=== PATIENT | female | born 2000 | race Caucasian/White ===

== ENCOUNTER 2021-12-25 17:57 | Outpatient (CLI) | payer BC, OTHER, SELFPAY ==
[2021-12-25 18:22] VITALS: BP 135/85; PULSE 101
[2021-12-25 18:30] VITALS: BP 131/86; PULSE 104
[2021-12-25 18:41] LABS: Basophils Percent Auto 0.1 % (0.2-1.2); Eosinophils Percent Auto 0.3 % (0-4.4); Hematocrit 34.3 % (37.0-47.0); Hemoglobin 11.2 g/dL (12.0-15.0); Immature Granulocyte Absolute 0.02 K/mm3 (0.00-0.031); Immature Granulocyte Percent A 0.3 % (0-0.5); Lymphocytes Absolute Auto 1.26 K/mm3 (0.9-3.2); Lymphocytes Percent Auto 16.5 % (18.3-44.2); Mean Corpuscular HGB Conc 32.7 g/dl (32-36); Mean Corpuscular Hemoglobin 29.7 pg (26-34); Mean Platelet Volume 11.7 fl (7.4-10.4); Monocytes Absolute Auto 0.8 K/mm3 (0.1-0.6); Neutrophils Absolute Auto 5.5 K/mm3 (1.3-6.7); Neutrophils Percent Auto 71.8 % (45.5-73.1); Platelet Count Result 171 k/mm3 (150-375); Red Blood Count 3.77 M/mm3 (4.2-5.4); Red Cell Distribution Width 14.6 % (11.5-14.5); White Blood Count 7.7 K/mm3 (4.5-10.0)
[2021-12-25 18:45] VITALS: BP 126/79; PULSE 101
[2021-12-25 18:54] LABS: Alanine Aminotransferase 15 U/L (6-35); Albumin Level 3.6 g/dL (3.5-5.1); Alkaline Phosphatase 273 U/L (38-126); Anion Gap 7 mmol/L (8-16); Aspartate Amino Transferase 23 U/L (14-36); Bilirubin,Total 0.3 mg/dL (0.2-1.3); Blood Urea Nitrogen 8 mg/dL (7-17); Calcium 8.4 mg/dL (8.4-10.2); Carbon Dioxide 23 mmol/L (22-30); Chloride 102 mmol/L (98-107); Estimated Glomerular Filt Rate > 60; Glucose 115 mg/dL (65-110); Sodium 132 mmol/L (137-145); Uric Acid 5.8 mg/dL (2.5-7.5)
[2021-12-25 18:56] LABS: Appearance Urine Slightly Cloudy (Clear); Bilirubin Urine Negative (Negative); Blood Urine Negative (Negative); Color Urine Yellow (Yellow); Glucose Urine UA Trace mg/dL (Negative); Ketones Urine Negative (Negative); Leukocyte Esterase Ur Negative LEU/UL (NEGATIVE); Nitrate Urine Negative (Negative); Protein Urine Negative (Negative); Urobilinogen Urine 0.2 mg/dL (<2.0); pH Urine 6.5 (5.0-9.0)
[2021-12-25 18:59] LABS: Amorphous Sediment Urine Few; Bacteria Urine Trace /hpf; Mucus Urine Rare /lpf; RBC Urine 0-2 /hpf (0-2); Squamous Epithelial Cell Urine Many /hpf (Few); WBC Urine 0-3 /hpf (0-3)
[2021-12-25 19:00] VITALS: BP 126/76; PULSE 104
[2021-12-25 19:03] LABS: Add Urine Microscopic? YES
[2021-12-25 19:09] LABS: Creatinine Urine 72.1 mg/dL; Total Protein Urine Random 13 mg/dL; Ur Ttl Prot Creatinine Ratio 0.18 mg/mg (0-0.20)
[2021-12-25 19:15] VITALS: BP 127/77; PULSE 97
--- NOTE | 2021-12-25 19:15 | PC.NURSE ---
called Dr. Juan and reported PIH lab result and BP. discharge order received
[2021-12-25 19:20] VITALS: BP 127/77; PULSE 107
== END 2021-12-25 19:20 | disposition home or self-care (01) ==
LOC: ANHOBOP 18:04 → ANHOBPP 18:04
PROVIDERS: Visit Provider Obstetrics & Gynecology
DX: O13.9 Gestational [pregnancy-induced] hypertension without significant proteinuria, unspecified trimester (principal); Z3A.00 Weeks of gestation of pregnancy not specified
CPT/HCPCS: 36415; 59025; 80053; 81001; 82570; 84156; 84550; 85025; 87086; 87088; 99199

== ENCOUNTER 2022-01-04 16:08 | Inpatient (IN) | payer BC, OTHER, SELFPAY ==
[2022-01-04] VITALS (16 sets, daily range): BP systolic 130–151; BP diastolic 85–104; PULSE 89–104; TEMP 36.3–36.5; BMI 29.2
[2022-01-04 15:15] LABS: Basophils Percent Auto 0.2 % (0.2-1.2); Eosinophils Percent Auto 0.2 % (0-4.4); Hematocrit 33.3 % (37.0-47.0); Hemoglobin 11.2 g/dL (12.0-15.0); Immature Granulocyte Absolute 0.04 K/mm3 (0.00-0.031); Immature Granulocyte Percent A 0.5 % (0-0.5); Lymphocytes Percent Auto 17.3 % (18.3-44.2); Mean Corpuscular HGB Conc 33.6 g/dl (32-36); Mean Corpuscular Hemoglobin 29.3 pg (26-34); Mean Corpuscular Volume 87.2 fl (80-100); Mean Platelet Volume 11.9 fl (7.4-10.4); Monocytes Absolute Auto 0.7 K/mm3 (0.1-0.6); Neutrophils Absolute Auto 5.9 K/mm3 (1.3-6.7); Neutrophils Percent Auto 72.8 % (45.5-73.1); Platelet Count Result 175 k/mm3 (150-375); Red Blood Count 3.82 M/mm3 (4.2-5.4); Red Cell Distribution Width 14.3 % (11.5-14.5); White Blood Count 8.1 K/mm3 (4.5-10.0)
[2022-01-04 15:16] LABS: Appearance Urine Slightly Cloudy (Clear); Bilirubin Urine Negative (Negative); Blood Urine Negative (Negative); Color Urine Yellow (Yellow); Glucose Urine UA Negative (Negative); Ketones Urine Negative (Negative); Leukocyte Esterase Ur Negative LEU/UL (NEGATIVE); Nitrate Urine Negative (Negative); Protein Urine 1+ mg/dL (Negative); Urobilinogen Urine 0.2 mg/dL (<2.0)
[2022-01-04 15:25] LABS: Bacteria Urine Trace /hpf; RBC Urine 0-2 /hpf (0-2); Squamous Epithelial Cell Urine Many /hpf (Few); WBC Urine 0-3 /hpf (0-3)
[2022-01-04 15:26] LABS: Add Urine Microscopic? YES
[2022-01-04 15:27] LABS: Alanine Aminotransferase 15 U/L (6-35); Albumin Level 3.4 g/dL (3.5-5.1); Alkaline Phosphatase 309 U/L (38-126); Anion Gap 7 mmol/L (8-16); Aspartate Amino Transferase 24 U/L (14-36); Bilirubin,Total 0.3 mg/dL (0.2-1.3); Blood Urea Nitrogen 8 mg/dL (7-17); Calcium 8.4 mg/dL (8.4-10.2); Carbon Dioxide 21 mmol/L (22-30); Chloride 102 mmol/L (98-107); Estimated Glomerular Filt Rate > 60; Glucose 86 mg/dL (65-110); Potassium 4.2 mmol/L (3.4-5.0); Sodium 130 mmol/L (137-145)
[2022-01-04 16:06] LABS: Creatinine Urine 30.6 mg/dL; Total Protein Urine Random 38 mg/dL; Ur Ttl Prot Creatinine Ratio 1.24 mg/mg (0-0.20)
[2022-01-04] MEDS: DINOPROSTONE 10 MG VAG INSERT VAGINAL (17:21)
--- NOTE | 2022-01-04 17:32 | LDADM ---
This patient, Carol Varela, was admitted to Labor/Delivery/Recovery 109 on 01/04/22 at 16:08. Plans for labor, pain management and were discussed with patient. Patient/family oriented to hospital policies and general routines including ID bracelet, bed and alarms, visiting hours, pain management, procedures, bathroom and other care routines, personal items, smoking policy, room service/diet and guest tray routines, infant security routines, and visiting hours. Patient/Family are encouraged to report perceived risks to care and to ask questions if they do not understand what they are told or what they should do. See OBIX for further documentation.
[2022-01-04 19:11] LABS: Glucose Point of Care 95 mg/dl (65-105)
[2022-01-05] VITALS (240 sets, daily range): BP systolic 127–181; BP diastolic 66–122; PULSE 49–173; RESP 18–20; TEMP 36.2–37; O2SAT 73–100
[2022-01-05 06:03] LABS: Glucose Point of Care 74 mg/dl (65-105)
[2022-01-05] MEDS: LACTATED RINGERS 1,000 ML 125 ML IV CONT ×2 (06:30→12:20)
[2022-01-05] MEDS: OXYTOCIN 30 UNITS/NS 500 ML 30 UNITS/500 ML BAG 6 UNITS IV CONT (06:30)
--- NOTE | 2022-01-05 09:47 | WPDOBADMIT ---
Obstetrics - Admit Note Admission Note: record reviewed. No pertinent additions to the history and/or any subsequent changes in the physical findings that are not consistent with the expected course of the were found. Medical induction of labor, GHTN, SVE /-2 AROM large amount of clear odorless fluid, anticipate vaginal delivery Additions to the history and/or subsequent changes in the physical findings follow. None.
[2022-01-05 10:19] LABS: Glucose Point of Care 97 mg/dl (65-105)
[2022-01-05] MEDS: fentaNYL CITRATE INJ (*CRX) 100 MCG/2 ML VIAL IV PUSH (11:22)
[2022-01-05 14:00] LABS: Glucose Point of Care 98 mg/dl (65-105)
[2022-01-05 16:27] LABS: Glucose Point of Care 86 mg/dl (65-105)
[2022-01-05] MEDS: SODIUM CHLORIDE 0.9% IV 300 ML 600 ML I-UTERINE (18:14)
[2022-01-05] MEDS: ONDANSETRON INJ 4 MG/2 ML VIAL IV PUSH (19:11)
[2022-01-05] MEDS: FAMOTIDINE 20 MG/2 ML VIAL (19:11)
--- NOTE | 2022-01-05 20:53 | PM.IMHP ---
H&P: HPI History of Present Illness Date/Time: 01/05/22 20:53 Chief Complaint: Pt is a at 39 weeks gestation .pt admitted for elevated blood pressures 140/90s, denies coronado, visual changes and epigastric pain. Denies swelling. Pt diagnosed with Gestational diabetes, diet controlled. hx covid during and was taking a baby ASA daily. [facility] Family History Family History Grandparent Diabetes mellitus Grandparent Diabetes mellitus Father Blood clotting disorder Social History Social History Smoking status: Never smoker Substance use: never Spiritual care concerns: No Meds Home Medications and Allergies Home Medications Medication Instructions Recorded Confirmed Type aspirin 81 mg tablet 81 mg PO DAILY 12/14/21 01/04/22 History prenat.vits,ciarra,[id number] 1 tablet PO HS 12/14/21 01/04/22 History Allergies Allergy/AdvReac Type Severity Reaction Status Date / Time No Known Allergies Allergy Unverified 01/17/18 12:44 Vital Signs Vital Signs - 24 hr 01/04/22 23:45 01/05/22 00:00 01/05/22 00:15 Temperature 36.3 C L Pulse Rate 104 H 92 95 Blood Pressure 148/97 H 137/90 137/97 H Pulse Oximetry 01/05/22 00:30 01/05/22 04:00 01/05/22 04:01 Temperature 36.4 C L Pulse Rate 93 87 88 Blood Pressure 135/89 137/93 H 146/101 H Pulse Oximetry 01/05/22 04:15 01/05/22 04:30 01/05/22 04:45 Temperature Pulse Rate 87 91 84 Blood Pressure 140/89 139/90 149/92 H Pulse Oximetry 01/05/22 05:00 01/05/22 05:15 01/05/22 05:30 Temperature Pulse Rate 80 89 88 Blood Pressure 140/92 H 140/101 H 146/106 H Pulse Oximetry 01/05/22 05:47 01/05/22 06:00 01/05/22 06:15 Temperature Pulse Rate 93 89 96 Blood Pressure 142/97 H 139/83 145/101 H Pulse Oximetry 01/05/22 07:00 01/05/22 07:30 01/05/22 08:00 Temperature 36.2 C L Pulse Rate 97 98 89 Blood Pressure 152/97 H 127/84 155/102 H Pulse Oximetry 01/05/22 08:30 01/05/22 09:00 01/05/22 09:30 Temperature Pulse Rate 89 84 100 Blood Pressure 140/95 H 148/97 H 129/91 H Pulse Oximetry 01/05/22 10:00 01/05/22 10:36 01/05/22 11:58 Temperature 36.5 C Pulse Rate 106 H Blood Pressure 150/107 H Pulse Oximetry 100 01/05/22 11:59 01/05/22 12:01 01/05/22 12:06 Temperature Pulse Rate 117 H Blood Pressure 160/106 H Pulse Oximetry 100 100 01/05/22 12:07 01/05/22 12:09 01/05/22 12:10 Temperature Pulse Rate 109 H 115 H 108 H Blood Pressure 151/101 H 141/99 H 147/101 H Pulse Oximetry 01/05/22 12:11 01/05/22 12:13 01/05/22 12:15 Temperature Pulse Rate 116 H 119 H Blood Pressure 146/91 H 161/94 H Pulse Oximetry 100 100 01/05/22 12:17 01/05/22 12:18 01/05/22 12:20 Temperature Pulse Rate 108 H 113 H 102 H Blood Pressure 162/101 H 152/88 H 147/90 H Pulse Oximetry 100 01/05/22 12:23 01/05/22 12:25 01/05/22 12:28 Temperature Pulse Rate 100 112 H 110 H Blood Pressure 146/92 H 135/92 H 146/98 H Pulse Oximetry 100 01/05/22 12:30 01/05/22 12:33 01/05/22 12:35 Temperature Pulse Rate 105 H 106 H Blood Pressure 147/90 H 148/92 H Pulse Oximetry 100 100 01/05/22 12:36 01/05/22 12:38 01/05/22 12:40 Temperature Pulse Rate 108 H 109 H 104 H Blood Pressure 133/82 133/81 138/86 Pulse Oximetry 100 01/05/22 12:43 01/05/22 12:45 01/05/22 12:48 Temperature Pulse Rate 100 97 103 H Blood Pressure 140/84 131/73 133/92 H Pulse Oximetry 100 01/05/22 12:50 01/05/22 12:53 01/05/22 12:55 Temperature Pulse Rate 102 H 101 H 101 H Blood Pressure 128/92 H 131/82 133/85 Pulse Oximetry 100 99 01/05/22 12:58 01/05/22 13:00 01/05/22 13:03 Temperature Pulse Rate 105 H 105 H 103 H Blood Pressure 136/84 132/86 138/88 Pulse Oximetry 99 01/05/22 13:05 01/05/22 13:08 01/05/22 13:10 Temperature Pulse Rate 107 H 104 H 118 H Blood Pres
[2022-01-05] MEDS: LABETALOL HCL INJ 100 MG/20 ML VIAL 20 MG IV PUSH ×2 (20:55→21:50)
--- NOTE | 2022-01-05 20:58 | PM.OBPNLAB ---
Pain Control Date/time seen: 01/05/22 20:58 at 39. 1 weeks gestation, after pushing x 1 hour pt blood pressures elevating with pain. severe range. denies coronado, visual changes and epigastric pain Assessment and Plan Comments: discussed with DR. Hernandez and Yessica De Souza plan magnesium sulfate, labetalol 20 mg
[2022-01-05] MEDS: MAGNESIUM SULF 4 GM/WATER100ML 4 GM/100 ML BAG IVPB (21:09)
[2022-01-05] MEDS: MAGNESIUM SULF 20GM/WATER500ML 500 ML 50 MG IV CONT (21:30)
[2022-01-05] MEDS: miSOPROStol 200 MCG TABLET 1000 MCG (22:50)
[2022-01-05] MEDS: CARBOPROST TROMETHAMINE 250 MCG/ML AMPUL IM (22:51)
[2022-01-05] MEDS: OXYTOCIN 30 UNITS/NS 500 ML 30 UNITS/500 ML BAG 125 UNITS IV CONT (23:03)
--- NOTE | 2022-01-05 23:18 | P.PCNOB_ITS ---
OB - Delivery Note Procedure Delivery date: 01/05/22 Procedure: vaginal delivery Events: Gestational Diabetes and Preeclampsia w/o severe features Intrapartal Events: Ineffetive Pushing/Maternal Exhaustion Induction method: AROM, Per Pitocin Protocol and Per Cervidil Protocol Delivery monitor: External FHT, External Uterine and Internal Uterine Route of delivery: Laceration Description: Perineal - 3rd Degree Delivery repair: vicryl Specimen: Yes Quantitative Blood Loss (ml): 914 Anesthesia type: Local Disposition: Floor Baby Date of : 01/05/22 Time of : 22:40 Weeks of gestation at delivery: 39 gender: Male Weight (pounds): 8 Weight (ounces): 2 presentation: vertex position: Left Occiput Anterior Placenta delivery description: Spontaneous Cord Vessel Description: 3 Vessels, Nuchal Cord, Loose, Reduced and Clamped/Cut score one minute: 4 score five minutes: 9 Narrative: head delivered and anterior shoulder little movement with pushing effort, rebeka, suprapubic pressure and manual rotation unable to move shoulder, repeated and some movement of anterior shoulder, Dr Martinez at bs and was able to rotate and deliver anterior shoulder and the rest of the baby delivered without difficulty. dystocia around 1 and 1/2 minutes with baby to RN and at warmer, doing well and stable. cord gasses sent dr. martinez repaired complete third degree laceration, mucosa, with interrupted s uture and then CNM repaired completed the repair. mother and baby stable, magnesium sulfate to be continued x 24 hours.
[2022-01-05] MEDS: ceFAZolin 2 GM/D5W 50 ML 2 GM/50 ML BAG IVPB (23:45)
[2022-01-06] VITALS (25 sets, daily range): BP systolic 118–142; BP diastolic 78–107; PULSE 97–119; RESP 16–18; TEMP 36.4–37.2; O2SAT 97–100
[2022-01-06] MEDS: WITCH HAZEL 40 PADS 1 PAD TOPICAL (00:54)
[2022-01-06] MEDS: BENZOCAINE 20% AER SPR (*SP) 56 GM CAN 1 SPRAY TOPICAL (00:54)
--- NOTE | 2022-01-06 02:20 | OBPPTRN ---
Patient transferred to post room #285 via (wheelchair). Support person present. Oriented to unit, room, information board, rooming in, admission packet and security measures. Patient verbalizes understanding.
[2022-01-06] MEDS: HYDROcodone/acetaminophen (*CRX) 5-325 MG TABLET 1 TAB PO ×4 (02:45→17:00)
[2022-01-06] MEDS: IBUPROFEN 600 MG TABLET PO ×3 (02:47→17:00)
[2022-01-06 05:26] LABS: Hematocrit 24.6 % (37.0-47.0); Hemoglobin 8.1 g/dL (12.0-15.0)
[2022-01-06] MEDS: MAGNESIUM SULF 20GM/WATER500ML 500 ML 50 MG IV CONT (07:16)
[2022-01-06] MEDS: POLYSACCHARIDE IRON COMPLEX 150 MG CAPSULE PO ×2 (07:27→16:35)
[2022-01-06] MEDS: DOCUSATE SODIUM 100 MG CAPSULE PO ×2 (07:28→16:35)
[2022-01-06] MEDS: LACTATED RINGERS 1,000 ML 75 ML (10:17)
--- NOTE | 2022-01-06 14:17 | PM.OBPNVD ---
OB - PN: Subj Subjective Date/time seen: 01/06/22 14:17 Patient comments: no complaints, pain well controlled, incisional pain, tolerating diet and flatus present OB - PN: Obj Data Labs CBC & Chem 7: 01/06/22 04:50 01/04/22 15:00 Labs: Laboratory Results - last 24 hr 01/05/22 01/06/22 16:22 04:50 Hgb 8.1 L D Hct 24.6 L POC Capillary Glucose 86 OB - PN A/P Plan day: 1 Plan: routine care Comments: No problems, routine care, blood pressures are normalized, magnesium sulfate was discontinued. Time Spent With Patient Time: Total time spent is greater than 50% in coordination of care (as documented) at patient's floor/unit and/or counseling patient: Exam Const: General: comfortable, no acute distress and alert Resp: Effort & Inspection: normal respiratory effort Auscultation: no crackles, no rales and no rhonchi Cardio: Rate: regular rate Heart sounds: no click, no murmurs and no rubs GI: Inspection: non-distended GI Palp: No Tenderness to palpation present (GI) Auscultation: normal bowel sounds Other: Incision - CDI Extrem: General: normal to inspection, no pedal edema and no calf tenderness
--- NOTE | 2022-01-06 17:21 | WPDANLDPN2 ---
Anes-Prog Note L&D Date/Time: 01/06/22 17:21 Comfortable throughout: labor and delivery Epidural/Spinal procedure site: clean & non-tender Neuro status: Neuro function grossly intact. Cardiovascular status: normal Respiratory status: normal Airway patency: baseline Mental status: baseline Post-Op hydration status: normal Vital Signs: Last Vital Signs Temp 36.9 C 01/06/22 12:15 Pulse 102 H 01/06/22 12:15 Resp 16 01/06/22 12:15 BP 122/78 01/06/22 12:15 Pulse Ox 99 01/06/22 12:15 O2 Del Method Room Air 01/06/22 07:20 Pain score (VAS): pt states feeling OK but has some numbness on her right thigh close to her knee, pt was in stirrups for an extended amount of time. Pt is up and ambulating in hallways with ease I/O: Intake & Output 01/06/22 01/06/22 01/06/22 07:59 15:59 23:59 Intake Total 850 1175 Output Total 400 1600 Balance 450 -425 Patient feedback: Patient satisfied with anesthetic care.
[2022-01-06] MEDS: ACETAMINOPHEN 325 MG TABLET 650 MG PO (19:48)
[2022-01-07] MEDS: HYDROcodone/acetaminophen (*CRX) 5-325 MG TABLET 1 TAB PO ×2 (00:13→09:28)
[2022-01-07] MEDS: IBUPROFEN 600 MG TABLET PO ×2 (00:14→09:27)
[2022-01-07 00:20] VITALS: BP 129/90; PULSE 101; RESP 18; TEMP 36.6; O2SAT 99
[2022-01-07 04:45] VITALS: BP 123/75; PULSE 96; RESP 14; TEMP 36.6; O2SAT 98
[2022-01-07 07:29] LABS: Rapid Plasma Reagin Non-Reactive (NonReactive)
[2022-01-07 07:35] VITALS: BP 125/73; PULSE 104; RESP 16; TEMP 36.9; O2SAT 100
--- NOTE | 2022-01-07 08:09 | PM.OBPNVD ---
OB - PN: Subj Subjective Date/time seen: 01/07/22 08:09 OB - PN: Obj Data Labs CBC & Chem 7: 01/06/22 04:50 01/04/22 15:00 Labs: Laboratory Results - last 24 hr 01/04/22 17:14 RPR Non-reactive OB - PN A/P Plan day: 2 Plan: routine care and discharge home Time Spent With Patient Time: Total time spent is greater than 50% in coordination of care (as documented) at patient's floor/unit and/or counseling patient: Review of Systems Review of Systems: All systems reviewed & are unremarkable except as noted in HPI and below Exam Const: General: cooperative, healthy appearing, comfortable, no acute distress and alert
[2022-01-07] MEDS: POLYSACCHARIDE IRON COMPLEX 150 MG CAPSULE PO (09:27)
[2022-01-07] MEDS: DOCUSATE SODIUM 100 MG CAPSULE PO (09:27)
--- NOTE | 2022-01-07 11:45 | PC.NURSE ---
1115 Patient stated she will view the discharge video Mother & Baby Care, The First Two Weeks at home. Patient was given the opportunity and encouraged to ask questions. Patient verbalized understanding of information shared and has been given the mother/baby guide for home reference.
[2022-01-08 07:57] VITALS: BP 134/94; PULSE 101; RESP 20; TEMP 36.7; O2SAT 99
--- NOTE | 2022-01-11 07:29 | PM.OBDSVD ---
DS: Admitting Diagnosis Discharge Date 01/07/22 Admitting Diagnosis iol, htn OB - DS: Summary OB Procedures : None and PIH Mgmt OB Procedures Intrapartum: Spontaneous Vag Delivery OB Procedures: : None Time Spent with Patient Time attestation: Total time spent providing and/or coordinating discharge services: DS: Data Data Completed and Pending Completed studies during hospitalization: Pending at discharge 01/05/22 22:45 Surgical [PTH] Routine Discharge Plan Discharge Attending physician on discharge: Araseli Juan Consulting providers: Suzi Lin ; Gunjan Salcedo Discharging Clinician: Suzi Lin Patient Disposition: Home, Self-Care Activity: pelvic rest Diet: regular Discharge Instructions: Education: Mom and Baby Guide Given to: Mother Follow-Up: Call your delivering provider's office for an appointment to be seen in: 1 Week Mom and baby should come to the [facility] for the follow-up appointment. Appointment Date/Time: Saturday, January 08, 2022 at 8:00 am What to expect at your follow-up visit: Physical Assessment Call [phone] if you are unable to keep your appointment time. BREAST CARE: * Wear a snug supportive bra. * For engorgement discomfort: Bottle Feeding: * May apply ice pack EPISIOTOMY/PERINEAL CARE: * Until bleeding stops, use your sammy bottle after urinating * Change your pad frequently throughout the day * You may take sitz baths several times a day (fill your bathtub with warm water and soak for 20 minutes.) Do NOT bathe in the water * No tub baths until seen by your physician - You may shower ACTIVITY: * Rest as much as possible. * Do not exercise or lift anything heavier than your baby (such as laundry or other children.) * Avoid stairs or driving as much as possible. * Do not put anything into the vagina. No douching, tampons, or sexual activity until seen by physician. NOTIFY PHYSICIAN IF YOU HAVE ANY QUESTIONS OR IF ANY OF THE FOLLOWING SYMPTOMS OCCUR: * If your episiotomy or incision becomes red, swollen, or more painful than what you have experienced in the hospital. * If your vaginal bleeding becomes foul smelling. * If your vaginal bleeding becomes more heavy than a period or if your bleeding changes from pink to bright red. However, you may pass an occasional walnut-sized clot once or twice for the first week . * If you experience a sharp, shooting pain in you calves. * If you discover a hard, reddened area on your breast or if you experience flu-like symptoms. DIET: * Eat regular, well-balanced meals. * Drink plenty of fluids daily. If , drink to thirst. Follow-up/Referrals: Suzi Lin CNM [Certified Nurse District Manager In Training] - 1 Week Discharge Medications: New polysaccharide iron complex 150 mg iron Capsule 150 mg PO BIDWM Qty: 60 0RF ibuprofen 600 mg Tablet 600 mg PO Q6H PRN (Reason: Cramping) Qty: 30 0RF hydrocodone-acetaminophen 5-325 mg Tablet 1 tablet PO Q4H PRN (Reason: Pain Rated 4-6) Qty: 25 0RF Continued prenat.vits,ciarra,[id number] Tablet 1 tablet PO HS Discontinued Adult Low Dose Aspirin 81 mg Tablet 81 mg PO DAILY Date of admission: 01/04/22 16:08 Primary Care Provider: UNKNOWN,DOCTOR Admitting Provider: Araseli Juan Attending physician on admission: Araseli Juan Condition: Stable
--- NOTE | 2022-01-16 18:10 | PM.OBDSVD ---
DS: Admitting Diagnosis Discharge Date 01/07/22 Admitting Diagnosis iol, htn OB - DS: Summary OB Procedures : None OB Procedures Intrapartum: Spontaneous Vag Delivery OB Procedures: : None Time Spent with Patient Time attestation: Total time spent providing and/or coordinating discharge services: DS: Data Data Completed and Pending Completed studies during hospitalization: Pending at discharge 01/05/22 22:45 Surgical [PTH] Routine Discharge Plan Discharge Attending physician on discharge: Araseli Juan Consulting providers: Suzi Lin ; Gunjan Salcedo Discharging Clinician: Suzi Lin Patient Disposition: Home, Self-Care Activity: pelvic rest Diet: regular Discharge Instructions: Education: Mom and Baby Guide Given to: Mother Follow-Up: Call your delivering provider's office for an appointment to be seen in: 1 Week Mom and baby should come to the [facility] for the follow-up appointment. Appointment Date/Time: Saturday, January 08, 2022 at 8:00 am What to expect at your follow-up visit: Physical Assessment Call [phone] if you are unable to keep your appointment time. BREAST CARE: * Wear a snug supportive bra. * For engorgement discomfort: Bottle Feeding: * May apply ice pack EPISIOTOMY/PERINEAL CARE: * Until bleeding stops, use your sammy bottle after urinating * Change your pad frequently throughout the day * You may take sitz baths several times a day (fill your bathtub with warm water and soak for 20 minutes.) Do NOT bathe in the water * No tub baths until seen by your physician - You may shower ACTIVITY: * Rest as much as possible. * Do not exercise or lift anything heavier than your baby (such as laundry or other children.) * Avoid stairs or driving as much as possible. * Do not put anything into the vagina. No douching, tampons, or sexual activity until seen by physician. NOTIFY PHYSICIAN IF YOU HAVE ANY QUESTIONS OR IF ANY OF THE FOLLOWING SYMPTOMS OCCUR: * If your episiotomy or incision becomes red, swollen, or more painful than what you have experienced in the hospital. * If your vaginal bleeding becomes foul smelling. * If your vaginal bleeding becomes more heavy than a period or if your bleeding changes from pink to bright red. However, you may pass an occasional walnut-sized clot once or twice for the first week . * If you experience a sharp, shooting pain in you calves. * If you discover a hard, reddened area on your breast or if you experience flu-like symptoms. DIET: * Eat regular, well-balanced meals. * Drink plenty of fluids daily. If , drink to thirst. Follow-up/Referrals: Suzi Lin CNM [Certified Nurse Bonsai Culturist] - 1 Week Discharge Medications: New polysaccharide iron complex 150 mg iron Capsule 150 mg PO BIDWM Qty: 60 0RF ibuprofen 600 mg Tablet 600 mg PO Q6H PRN (Reason: Cramping) Qty: 30 0RF hydrocodone-acetaminophen 5-325 mg Tablet 1 tablet PO Q4H PRN (Reason: Pain Rated 4-6) Qty: 25 0RF Continued prenat.vits,ciarra,[id number] Tablet 1 tablet PO HS Discontinued Adult Low Dose Aspirin 81 mg Tablet 81 mg PO DAILY Date of admission: 01/04/22 16:08 Primary Care Provider: UNKNOWN,DOCTOR Admitting Provider: Araseli Juan Attending physician on admission: Araseli Juan Condition: Stable
== END 2022-01-07 11:35 | disposition home or self-care (01) | DRG 768 ==
LOC: ANHOBOP 16:51 → ANHLDR 16:51 → ANHOB2 01-06 02:23
PROVIDERS: Advanced Practice Midwife; Admitting Provider Obstetrics & Gynecology; Visit Provider Obstetrics & Gynecology
DX: O14.94 Unspecified pre-eclampsia, complicating childbirth (principal); Z37.0 Single live birth; O70.20 Third degree perineal laceration during delivery, unspecified; Z3A.39 39 weeks gestation of pregnancy; O36.8330 Maternal care for abnormalities of the fetal heart rate or rhythm, third trimester, not applicable or unspecified; O69.81X0 Labor and delivery complicated by cord around neck, without compression, not applicable or unspecified; O24.420 Gestational diabetes mellitus in childbirth, diet controlled; O66.0 Obstructed labor due to shoulder dystocia; O75.81 Maternal exhaustion complicating labor and delivery
CPT/HCPCS: 36415; 80053; 81001; 82570; 82948; 84156; 84550; 85014; 85018; 85025; 86592; 86850; 86900; 86901; 87086; 88307; A9270; J0690; J2405; J2590; J2795; J3010; J3475; J7030; J7120

== ENCOUNTER 2024-08-09 11:14 | Outpatient (CLI) | payer BC, SELFPAY ==
[2024-08-09 12:14] LABS: Beta HCG Quantitative 25.85 mIU/ML
--- OUTSIDE RECORDS SUMMARY | 2024-08-09 12:45 | XMS_ITS | Data Portability ---
Author Organization [facility] Address [address] [place] [address] [place] [address] Care Team Providers Care Adult Literacy Teacher Name Role Phone SEEMA HOLGUIN Primary Care Provider [phone] Assessment Encounter Date Assessment Date Assessment LastModified by Organization Details LastModified Time 04/19/2022 04/19/2022 Annual gynecological exam performed. Patient will come back in a year unless there are new symptoms. Suggest Calcium with Vitamin D if not eating in diet. Patient advised to get annual flu shot. Recommend yearly physicals and preform monthly breast exams. Genetic testing is available for patients with family history of cancer. Engage in safe sexual practices, use condoms. Encouraged to have daily exercise. Avoid tobacco and illicit drugs, moderation of alcohol. If BMI greater than 25 dietary consult advised. If you have any questions please call or email. [email or web address] Not available 04/19/2022 15:23:41 05/02/2023 05/02/2023 Annual gynecological exam performed. Patient will come back in a year unless there are new symptoms. [email or web address] Not available 05/02/2023 15:47:44 Plan of Treatment Reminders Order Date Submit Date Provider Last Modified By Organization Details Last Modified Time Details Appointments None recorded . Lab urinalys is, dipstick 2022 023 clarence Dixon, [address], [address], [place], [address], 11:42:16 Referral None recorded . Procedures None recorded . Surgeries None recorded . Imaging None recorded . Medication Orders metronid azole 500 mg tablet [address] [facility] [address] [id number], [address], [place], [place], [id number], 3 16:51:19 Diflucan 200 mg tablet 2022 023 [email or web address] [id number], [address], [place], [place], [id number], 3 11:27:36 Slynd 4 mg (28) tablet [address] [id number], [address], [place], [place], [id number], 3 16:51:21 Patient TargetsNo targets recorded. Patient InstructionsNo instructions recorded. Reason for Referral None Reported. Results Created Date Observation Date Name Description Value Unit Range Abnormal Flag Note LastModifiedBy Organization Detail LastModifiedTime 04/19/20 22 04/19/2022 IMAGE GUIDE D PAP, REFLE X HPV IF ASCUS ONLY image guided Pap, reflex HPV ASCUS only SEE RESULT S BELOW CASE REPOR T: Cytol ogy Gynec ologi duglas Repor t Case: [id number] Autho justin cooper Provi louise: Suzi Bermeo NP Colle cted: 04/19 1537 Order ing Locat ion: [place] [facility] Recei manuel: 04/20 0126 First Scree n: Strut z, Nadeem am, [place] Rescr een: Yecenia Wells , [place] Speci men: Scree rhonda Pap - Image d, Cervi x STATE MENT OF ADEQU ACY: Satis facto ry for evalu ation Trans forma tion zone compo nent prese nt Parti ally obscu ring blood prese nt. FINAL DIAGN OSIS: Negat conrad for Intra epith elial Lesio n or Pedro aragon (NIL) . Elect amy becker ever d by Yecenia Wells , [place] on 04/22 at 6:24 PM ----- ----- ----- ----- ----- ----- ----- ----- ----- ----- ----- ----- ----- ----- ----- ----- ----- ---- COMME NT: Note: This speci men was revie wed by a Cytot echno logis t and/o r Patho logis t (as indic ated in this repor t) after evalu ation using the Thinp rep Imagi ng Syste m. CLINI DUGLAS INFOR MATIO N: Menst rual Statu s: LMP (if appli cable ): 2021 Clini duglas Histo ry/Pr eviou s Pap: Type of Neopl ilsa (if appli cable ): Signi fican t Clini duglas Findi ngs: Other Histo ry: Hormo patti (if appli cable ): PAP EDUCA BRENDA L NOTE: The Pap Test is a scree rhonda test with an inher ent false negat conrad rate. Liqui d-bas ed sampl ing may decre ase, but will not elimi fransisco, false negat conrad resul ts. A negat conrad resul t does not precl ude the prese nce and/o r devel opmen t of disea se, since the prese nce of abnor mal cells in the sampl e depen ds on the locat ion of the lesio n and sampl ing techn ique. Farzad nued regul ar scree rhonda is the best metho d of cance r preve ntion . If repor agus cytol ogic findi ng do not corre late with physi duglas and/o r histo rical findi ngs, furth er inves tigat ion is recom nelia d, as clini gabriela santos nted. Not Available [facility] (Lab) [address], [place], [address], 04/22/2022 19:27:47 07/24/19 23 07/23/2022 VAGIN ITIS/ VAGIN OSIS, DNA PROBE janene sp. detection, direct probe Negati ve negati ve Not Available [facility] (Lab) [address] [facility], [place], [address], 07/25/2022 07:24:20 07/24/19 23 07/23/2022 VAGIN ITIS/ VAGIN OSIS, DNA PROBE gardnerella vag. detection, direct probe Positi ve negati ve abnormal Not Available [facility] (Lab) [address] [facility], [place], [address], 07/25/2022 07:24:20 07/24/19 23 07/23/2022 VAGIN ITIS/ VAGIN OSIS, DNA PROBE trichomonas vag. detection, direct probe Negati ve negati ve Not Available [facility] (Lab) [address] [facility], [place], [address], 07/25/2022 07:24:20 07/24/19 23 07/23/2022 CULTU RE: URINE result report SEE RESULT S BELOW Test: Cultu re: Urine Speci men Sourc e: Urine Voide d Speci men Type: Urine Speci men Date: 2022 3:34 PM Resul t Date: 2022 6:20 AM Resul t Statu s: Final resul t Abnor mal: No Resul ting Lab: [facility] [address] [facility] [address] Tel: CULTU RE ----- ----- ----- --- No growt h in 1 day (dete ction level of 10,00 0 colon ies / ml.) Not Available [facility] (Lab) [address] [facility], [place], [address], 07/25/2022 07:24:20 07/24/19 23 07/23/2022 urina lysis , dipst ick Leukocytes neg Not Available Viktor johnson [address], [place], [address], 07/23/2022 11:37:19 07/24/19 23 07/23/2022 urina lysis , dipst ick Nitrite neg Not Available Dixon [address], [place], [address], 07/23/2022 11:37:19 07/24/19 23 07/23/2022 urina lysis , dipst ick Urobilinogen neg Not Available [facility] argenis [address], [place], [address], 07/23/2022 11:37:19 07/24/19 23 07/23/2022 urina lysis , dipst ick Protein neg Not Available Dixon [address], [place], [address], 07/23/2022 11:37:19 07/24/19 23 07/23/2022 urina lysis , dipst ick pH 5 Not Available Dixon [address], [place], [address], 07/23/2022 11:37:19 07/24/19 23 07/23/2022 urina lysis , dipst ick Blood ++ Not Available Dixon [address], [place], [address], 07/23/2022 11:37:19 07/24/19 23 07/23/2022 urina lysis , dipst ick Specific [place] 1.005 Not Available [facility] [address], [place], [address], 07/23/2022 11:37:19 07/24/19 23 07/23/2022 urina lysis , dipst ick Ketone neg Not Available Dixon [address], [place], [address], 07/23/2022 11:37:19 07/24/19 23 07/23/2022 urina lysis , dipst ick Bilirubin neg Not Available [facility] marbin [address], [place], [address], 07/23/2022 11:37:19 07/24/19 23 07/23/2022 urina lysis , dipst ick Glucose neg Not Available Dixon [address], [place], [address], 07/23/2022 11:37:19 07/24/19 23 07/23/2022 urina lysis , dipst ick Appearance clear Not Available [facility] elizabeth [address], [place], [address], 07/23/2022 11:37:19 07/24/19 23 07/23/2022 urina lysis , dipst ick Color yellow Not Available Dixon [address], [place], [address], 07/23/2022 11:37:19 09/14/19 23 09/13/2022 VAGIN ITIS/ VAGIN OSIS, DNA PROBE janene sp. detection, direct probe Negati ve negati ve Not Available [facility] (Lab) [address] [place], [address], 09/14/2022 13:52:09 09/14/19 23 09/13/2022 VAGIN ITIS/ VAGIN OSIS, DNA PROBE gardnerella vag. detection, direct probe Positi ve negati ve abnormal Not Available [facility] (Lab) [address] [facility], [place], [address], 09/14/2022 13:52:09 09/14/19 23 09/13/2022 VAGIN ITIS/ VAGIN OSIS, DNA PROBE trichomonas vag. detection, direct probe Negati ve negati ve Not Available [facility] (Lab) [address] [facility], [place], [address], 09/14/2022 13:52:09 09/14/19 23 09/13/2022 CT/GC AND TRICH OMONA S VAGIN JULIETTE (RRNA ), SWAB chlamydia trachomatis, PCR Negati ve negati ve Not Available [facility] (Lab) [address] [facility], [place], [address], 09/14/2022 13:52:10 09/14/19 23 09/13/2022 CT/GC AND TRICH OMONA S VAGIN JULIETTE (RRNA ), SWAB neisseria gonorrhoeae, PCR Negati ve negati ve Not Available [facility] (Lab) [address] [facility], [place], [address], 09/14/2022 13:52:10 09/14/19 23 09/13/2022 CT/GC AND TRICH OMONA S VAGIN JULIETTE (RRNA ), SWAB trichomonas vaginalis ribosomal RNA (rrna) Negati ve negati ve Not Available [facility] (Lab) [address] [facility], [place], [address], 09/14/2022 13:52:10 05/02/20 23 05/02/2023 CT/GC AND TRICH OMONA S VAGIN JULIETTE (RRNA ), SWAB chlamydia trachomatis, PCR Negati ve negati ve Not Available [facility] (Lab) [address] [facility], [place], [address], 05/05/2023 11:21:37 05/02/20 23 05/02/2023 CT/GC AND TRICH OMONA S VAGIN JULIETTE (RRNA ), SWAB neisseria gonorrhoeae, PCR Negati ve negati ve Not Available [facility] (Lab) [address] [facility], [place], [address], 05/05/2023 11:21:37 05/02/20 23 05/02/2023 CT/GC AND TRICH OMONA S VAGIN JULIETTE (RRNA ), SWAB trichomonas vaginalis ribosomal RNA (rrna) Negati ve negati ve Not Available [facility] (Lab) [address] [facility], [place], [address], 05/05/2023 11:21:37 05/02/20 23 05/02/2023 VAGIN ITIS/ VAGIN OSIS, DNA PROBE janene sp. detection, direct probe Negati ve negati ve Not Available [facility] (Lab) [address] [facility], [place], [address], 05/05/2023 11:21:37 05/02/20 23 05/02/2023 VAGIN ITIS/ VAGIN OSIS, DNA PROBE gardnerella vag. detection, direct probe Negati ve negati ve Not Available [facility] (Lab) [address] [facility], [place], [address], 05/05/2023 11:21:37 05/02/20 23 05/02/2023 VAGIN ITIS/ VAGIN OSIS, DNA PROBE trichomonas vag. detection, direct probe Negati ve negati ve Not Available [facility] (Lab) [address] [facility], [place], [address], 05/05/2023 11:21:37 Result Notes None recorded. Problems Name Problem SNOMED Code Status Onset Date Resolution Date Notes Provider Name and Address Organization Details Recorded Time SNOMED CT Concept Completed 201804/13/2021 Encntr for routine child health exam w/o abnormal findings ;Recorde d Elsewher e: No Locat ion: Kate zazueta [facility] S ource: EHR Plant Scientist ramses: N Riya ce ID: [id number] Mehrdad lable Time: 10:15:00 AM Brook travis [facility] 14:06:26 Pregnanc y test negative [id number] Completed 201804/13/2021 Encounte r for pregnanc y test, result negative ;Recorde d Elsewher e: No Locat ion: Kate zazueta [facility] S ource: EHR Plant Scientist ramses: N Eberti ce ID: [id number] Mehrdad lable Time: 04:00:00 PM Brook travis [facility] 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 14:06:[address] Concept Completed 201804/13/2021 Encounte r for surveill ance of other contrace ptives;R ecorded Elsewher e: No Locat ion: [facility] S ource: EHR Plant Scientist ramses: N Eberti ce ID: [id number] Mehrdad lable Time: 04:00:00 PM Brook Pierre [facility], [facility] 14:06:30 Urinary tract infectio us disease [id number] Completed 201804/13/2021 UTI;Rowdy rded Elsewher e: No Locat ion: [facility] S ource: EHR Plant Scientist ramses: N Riya ce ID: 0001 Mehrdad lable Time: 11:15:00 AM Brook Ignacio thaddeus, [facility] 1 14:06:32 Pregnanc y [id number] Completed 202102/22/2022 Khadra travis, [facility] 2 14:24:17 COVID-19 [id number] Completed 2021 sx's 09/28 + 09/30 Baby ASA & serial growth u/s Khadra burns null, [facility] 2 14:24:09 Impaired glucose toleranc e in pregnanc y [id number] Completed Couldn't keep 3hr GTT down. Checking BS QID and to review at 11/09 appt to see if she has GDM or not! Khadra travis, [facility] 2 14:24:09 Gestatio nal diabetes mellitus [id number] Completed Khadra Hunt null [facility] 2 14:24:09 Problem Notes None recorded. Procedures Surgical History Date Name Laterality Status Provider Name and Address Organization Details Recorded Time 2 Date of Last Pap Smear completed Brook Pierre [facility] 04/19/2022 16:35:54 0 Control Implant Removal completed Viviana Murguia, [facility]- [address], [place], [address], [facility] 10/20/2019 12:11:17 Imaging Results None recorded. Procedure Notes None recorded. Medical Equipment None Reported. Allergies No known drug allergies Medications Name Sig Start Date Stop Date Status Note LastModified by Organization Details LastModified Time amoxicillin 500 mg capsule TK 1 C PO Q 12 H FOR 10 DAYS 07/31 completed Not Available Not Available Not Available silver sulfadiazin e 1 % topical cream APPLY A 1/16 INCH (1.5 MM) THICK LAYER TO ENTIRE BURN AREA BY TOPICALRO [place] 2 TIMES PER DAY 01/30 completed Not Available Not Available Not Available fluconazole 150 mg tablet TAKE 1 TABLET BY MOUTH 1 TIME A DAY. MAY TAKE THE 2 ND PILL BY MOUTH 2 DAYS LATER IF SYMPTOMS ARE STILL PRESENT 09/13 completed Not Available Not Available Not Available hydrocodone 5 mg-acetamin ophen 325 mg tablet 01/30 completed Not Available Not Available Not Available fluconazole 200 mg tablet TAKE 1 TABLET BY MOUTH EVERY OTHER DAY FOR 3 DOSES 07/23 completed Not Available Not Available Not Available metronidazo le 0.75 % (37.5 mg/5 gram) vaginal gel INSERT ONE APPLICATO RFUL VAGINALLY AT BEDTIME FOR 5 DAYS 05/02 completed Not Available Not Available Not Available metronidazo le 500 mg tablet TAKE 1 TABLET BY MOUTH TWICE DAILY. DO NOT CONSUME ALCOHOL WHILE TAKING THIS PRODUCT 09/13 completed Not Available Not Available Not Available amoxicillin 500 mg tablet TAKE 1 TABLET BY MOUTH TWICE DAILY FOR 10 DAYS 06/15 completed Not Available Not Available Not Available nystatin-tr iamcinolone 100,000 unit/gram-0 .1 % topical ointment APPLY TOPICALLY TO THE AFFECTED AREA TWICE DAILY FOR 5 DAYS OR NEEDED 04/13 completed Not Available Not Available Not Available terbinafine HCl 250 mg tablet 09/19 completed Not Available Not Available Not Available OneTouch Ultra Test strips TEST BLOOD SUGAR FOUR TIMES DAILY FASTING AND 1 HOUR AFTER MEALS 01/11 completed Not Available Not Available Not Available prednisone 50 mg tablet TAKE 1 TABLET BY MOUTH DAILY FOR 5 DAYS 06/15 completed Not Available Not Available Not Available promethazin e 25 mg tablet TAKE 1 TABLET BY MOUTH EVERY 4 TO 6 HOURS NEEDED FOR NAUSEA 07/31 completed Not Available Not Available Not Available norethindro ne acetate 1 mg-ethinyl estradiol 20 mcg tablet 07/31 completed Not Available Not Available Not Available ergocalcife rol (vitamin D2) 1,250 mcg (50,000 unit) capsule TAKE 1 CAPSULE BY MOUTH EVERY WEEK 06/15 completed Not Available Not Available Not Available ibuprofen 600 mg tablet TAKE 1 TABLET BY MOUTH EVERY 6 HOURS NEEDED FOR CRAMPING 01/30 completed Not Available Not Available Not Available ketoconazol e 2 % topical cream 09/19 completed Not Available Not Available Not Available ondansetron 4 mg disintegrat ing tablet Place 1 tablet every 6-8 hours by transling ual route. 07/31 completed Not Available Not Available Not Available Poly-Iron 150 Forte 150 mg-25 mcg-1 mg capsule TAKE 1 CAPSULE BY MOUTH TWICE DAILY WITH MEALS 01/30 completed Not Available Not Available Not Available Adult Low Dose Aspirin 81 mg tablet Take 1 tablet every day by oral route. 01/11 completed Not Available Not Available Not Available nitrofurant oin monohydrate /macrocryst als 100 mg capsule TAKE 1 CAPSULE BY MOUTH EVERY 12 HOURS WITH FOOD 07/31 completed Not Available Not Available Not Available amoxicillin 03/14 completed Not Available Not Available Not Available Vitamin 01/11 completed Not Available Not Available Not Available levonorgest rel 1.5 mg tablet 07/31 completed Not Available Not Available Not Available Lo Loestrin Fe 1 mg-10 mcg (24)/10 mcg (2) tablet Take 1 tablet every day by oral route for 30 days. 07/31 completed Not Available Not Available Not Available Nexplanon 68 mg subdermal implant Inject by subcutane ous route. 03/14 completed Not Available Not Available Not Available Estarylla 0.25 mg-0.035 mg tablet TAKE 1 TABLET BY MOUTH EVERY DAY 04/13 completed Not Available Not Available Not Available Nuvessa 1.3 % (65 mg/5 gram) vaginal gel 05/02 completed Not Available Not Available Not Available OneTouch Ultra2 Meter USE TO TEST BLOOD SUGARS FOUR TIMES DAILY 01/11 completed Not Available Not Available Not Available OneTouch Delica Plus Lancet 33 gauge 01/11 completed Not Available Not Available Not Available Slynd 4 mg (28) tablet TAKE 1 TABLET BY MOUTH EVERY DAY 09/13 completed Not Available Not Available Not Available ID NOW COVID-19 Test Kit 12/12 completed Not Available Not Available Not Available COVID-19 test specimen collection TEST DIRECTED TODAY 07/31 completed Not Available Not Available Not Available Vitals Date Recorded Body height Body mass index (BMI) Body weight Systolic blood pressure Diastolic blood pressure Provider Name and Address Organization Details Last Updated DateTime 04/19/2022 160.02 cm 23 kg/m2 37457.01 g 123 mm[Hg] 84 mm[Hg] Brook Pierre [facility] 14:55:45 Date Recorded Body height Systolic blood pressure Diastolic blood pressure Provider Name and Address Organization Details Last Updated DateTime 06/21/2022 160.02 cm 118 mm[Hg] 72 mm[Hg] [facility] 06/21/2022 16:20:40 Date Recorded Body height Systolic blood pressure Diastolic blood pressure Provider Name and Address Organization Details Last Updated DateTime 07/23/2022 160.02 cm 115 mm[Hg] 78 mm[Hg] [facility] 07/23/2022 11:27:31 Date Recorded Body height Body mass index (BMI) Body weight Provider Name and Address Organization Details Last Updated DateTime 09/13/2022 160.02 cm 21.6 kg/m2 27049.27 g Brit Christie [facility] 09/13/2022 16:50:42 Date Recorded Systolic blood pressure Diastolic blood pressure Provider Name and Address Organization Details Last Updated DateTime 09/13/2022 122 mm[Hg] 80 mm[Hg] Viviana Murguia, [facility]- [address], [place], [address], [facility] 09/13/2022 16:56:50 Date Recorded Body height Body mass index (BMI) Body weight Systolic blood pressure Diastolic blood pressure Provider Name and Address Organization Details Last Updated DateTime 05/02/2023 160.02 cm 20.9 kg/m2 19334.9 g 124 mm[Hg] 84 mm[Hg] Shara Tom [facility] 15:56:05 Social History Question Answer Notes LastModified by Organizat ion Details LastModified Time Tobacco Smoking Status Never Smoker Shantelle Shan travis, [facility] 05/02/2023 15:46:13 Do You Have An Advance Directive? No Information not available 07/31/2020 What Is Your Level Of Alcohol Consumption? None Information not available 11/13/2021 If You Are , What Was Your Level Of Alcohol Consumption Prior To ? Moderate Information not available 05/02/2023 Are You Blind Or Do You Have Difficulty Seeing? No Information not available 07/31/2020 What Is Your Level Of Caffeine Consumption? Heavy Information not available 07/31/2020 How Much Tobacco Do You Chew? None Information not available 07/31/2020 In The 14 Days Before Symptom Onset, Have You Had Close Contact With A Laboratory-confir med COVID-19 While That Case Was Ill? No Information not available 07/31/2020 In The 14 Days Before Symptom Onset, Have You Had Close Contact With A Person Who Is Under Investigation For COVID-19 While That Person Was Ill? No Information not available 07/31/2020 Have You Been To An Area Known To Be High Risk For COVID-19? No Information not available 07/31/2020 Are You Deaf Or Do You Have Serious Difficulty Hearing? No Information not available 07/31/2020 What Type Of Diet Are You Following? REGULAR [email or web address] Information not available 04/13/2021 Do You Or Have You Ever Used E-cigarettes Or Vape? Never Used Electronic Cigarettes [email or web address] Information not available 05/02/2023 What Is The Highest Grade Or Level Of School You Have Completed Or The Highest Degree You Have Received? [id number] Information not available 07/31/2020 Are There Any Guns Present In Your Home? No Information not available 07/31/2020 What Was The Date Of Your Most Recent Tobacco Screening? 04/19/2022 [email or web address] Information not available 05/02/2023 Do You Use Protection During Sex? No Information not available 07/31/2020 Do You Use Your Seat Belt Or Car Seat Routinely? Yes Information not available 07/31/2020 Do You Have Smoke And Carbon Monoxide Detectors In Your Home? Yes Information not available 07/31/2020 Do You Or Have You Ever Used Smokeless Tobacco? Never Used Smokeless Tobacco Information not available 05/02/2023 How Much Tobacco Do You Smoke? No Information not available 03/14/2020 Do You Feel Stressed (tense, Restless, Nervous, Or Anxious, Or Unable To Sleep At Night)? [id number] Information not available 07/31/2020 Do You Use Any Illicit Or Recreational Drugs? No Information not available 07/31/2020 Do You Use Sunscreen Routinely? Yes Information not available 07/31/2020 Have You Used IV Drugs? No Information not available 07/31/2020 Sex: Unknown Functional Status Question Answer Note LastModified by Organizat ion Details LastModified Time Do you have difficulty walking or climbing stairs? No [email or web address] Information not available 05/02/2023 Are you able to walk? [email or web address] Information not available 07/31/2020 Are you able to care for yourself? Yes [email or web address] Information not available 05/02/2023 Do you have difficulty dressing or bathing? No [email or web address] Information not available 05/02/2023 What is your exercise level? Occasional [email or web address] Information not available 03/14/2020 Mental Status None recorded. Family History Relationship Description Onset Age of this Age Resolved Age Notes LastModified by Organization Details LastModified Time Paternal Grandfather Diabetes mellitus [email or web address] Not available 2022 16:51:10 Paternal Grandmother Diabetes mellitus [email or web address] Not available 2022 16:51:10 Medical History Condition Response Allergies (Food, seasonal, environmental ) N Other N Breast Cancer N Drug/Latex Allergies/Reactions N Blood Transfusion N Dermatologic Disorders N Lung Disease Y Defects or Inherited Disease N Breast Problem N Gestational Diabetes Y Hematologic disorders N Anesthesia Complications N History of STI N Deep Vein Thrombosis N Polycystic ovary syndrome N Anxiety Disorder N Autoimmune disease N Arthritis N Infertility N Polyps N Acid Reflux (GERD) N History of abnormal pap N Cancer N Stroke N Varicosities N Neurologic/Epilepsy N Endometriosis N High Cholesterol N Headaches N Fibromyalgia N Kidney Disease N Heart Problems N Kidney or Bladder Problems N Thyroid Problems N GI Problems N Eating Disorder N Anemia N Art (IVF or FET) N Psychiatric Illness N Ovarian Cancer N Diabetes Y Pulmonary (TB, Asthma) Y Hepatitis/Liver Disease N Eczema N Urinary Tract Infection N Abuse/Domestic Violence N Asthma N Trauma/Violence N Depression/ depression N Heart Disease N Pre-Eclampsia Y Hypertension N Osteoporosis N Thrombophilias N Gynecological History Statement/Question Response Abnormal Pap N Flow Light Date of Last Mammogram Date of LMP 05/01/2023 On BCP's at Conception? N N STIs/STDs N HPV Vaccine N Current Control Method None Are cycles usually normal Y Most Recent Bone Density Sexually Active? Y Menses Monthly Y Age of first menstrual cycle 10 Date of Last Pap Smear 04/19/2022 Sexual Problems? N LMP Definite N Obstetrics History GPAL:G 1 P 1 0 0 1 Type Value Full Term 1 Living 1 Total 1 Past Encounters Encounter ID Performer Location Encounter Start Date Encounter Closed Date Diagnosis/Indication Diagnosis SNOMED-CT Code Diagnosis ICD10 Code Diagnosis Note [id number] Viviana Murguia [facility] [address] [address] 09/20/2019 14:09:23 09/20/2019 14:55:43 Urinary tract infectious disease 28590814 N39.0 Neg urine dip Vaginitis 05731492 N76.0 Exam is suspect for probable yeast infection. Cultures sent Rx diflucan sent Time spent in visit is a total of 15 mins with at least 50% of visit consisting of counseling and review of plan of care. [id number] Viviana Murguia [facility] [address],[place] [address] 10/20/2019 11:36:59 10/20/2019 12:24:08 Removal of subcutaneous contraceptive 354192259 Z30.46 Z30.9 Removal site was cleansed with betadine [id number] lidocaine used for anesthesia . Device was removed in normal fashion without difficulty . Steristips and pressure bandage placed. Discussed all control options in great detail. Pt would like to start ocp. She is aware of the risks and benefits. She does not have any medical condition that is contraindi cated with the use of estrogen containing control. Pt will start her pills on the first friday following the start of her period. She is aware it is not effective for control the first month. She is also aware of the importance of taking at the same time every day. Encouraged use of condoms as the pill does not protect against STD's. Will return in 3 months for med check. Consent was read and signed. Pt verbalized understand ing. RTO x 3mos Time spent in visit is a total of 15 mins with at least 50% of visit consisting of counseling and review of plan of care not including time spent on procedure today. [id number] Suzi Lin [facility] [address],[place] [address] 03/14/2020 16:21:52 03/14/2020 17:24:40 Vaginitis 24197571 N76.0 [id number] Sara Trujillo [facility] [address],[place] [address] 05/03/2020 14:29:44 05/07/2020 17:13:15 [id number] [facility] [address],[place] [address] 07/31/2020 14:24:07 07/31/2020 15:02:48 Vaginitis 88704124 N76.0 Will treat for yeast today & vulva irritation Sending cx's and will await results for additional treatment past what was prescribed today. If random vag spotting with wipe does not reslve after teatment needs to consider updated US & possilbe change in OCP. Time spent in visit is a total of 15 mins with at least 50% of visit consisting of counseling and review of plan of care. [id number] Suzi Lin [facility] [address],[place] [address] 04/13/2021 13:49:11 04/13/2021 14:56:52 Gynecologic examination 29281432 Z01.419 Vaginitis 05428475 N76.0 [id number] Suzi Lin [facility] [address],[place] [address] 04/19/2022 14:40:07 04/19/2022 15:47:46 Gynecologic examination [id number] Z01.419 Z11.3 Z11.8 [id number] Kristen Torres [facility] [address],[place] [address] 06/15/2021 15:55:54 06/15/2021 16:38:49 [id number] Suzi Lin [facility] [address],[place] [address] 06/15/2021 15:55:54 06/15/2021 16:38:49 Amenorrhea 90469648 N91.2 [id number] Kristen Torres [facility] [address],[place] [address] 07/06/2021 14:56:02 07/06/2021 15:31:17 screening [id number] Z36.82 [id number] Rod Juan MD [facility] [address],[place] [address] 07/06/2021 14:58:12 07/09/2021 12:45:15 Routine care [id number] Z34.92 [id number] Elvia Hernandez MD [facility] [address],[place] [address] 07/31/2021 09:37:10 07/31/2021 10:37:07 Serum thyroid stimulating hormone level outside reference range 896400726 R79.89 Routine an tenatal care [id number] Z34.02 [id number] Kristen Torres [facility] [address],[place] [address] 09/04/2021 10:59:10 09/04/2021 12:23:16 screening [id number] Z36.3 [id number] Rod Juan MD [facility] [address],[place] [address] 09/04/2021 11:04:55 09/04/2021 12:30:28 Routine care 307725331 Z34.92 [id number] Elvia Hernandez MD [facility] [address],[place] [address] 10/09/2021 16:47:04 10/11/2021 15:26:54 Routine care 975538455 Z34.02 [id number] Kristen Torres [facility] [address],[place] [address] 10/25/2021 15:55:46 10/25/2021 17:05:10 Pre-existing maternal disease complicating 5524340898 6106 O99.891 U07.1 Z3A.28 [id number] Rod Juan MD [facility] [address],[place] [address] 10/25/2021 15:57:35 10/25/2021 17:06:57 Routine care 804653215 Z34.92 [id number] [facility] [address],[place] [address] 11/13/2021 11:58:21 11/13/2021 13:51:54 Routine care 676965104 Z34.93 [id number] Latricia Garcia [facility] [address],[place] [address] 11/27/2021 11:27:17 11/27/2021 12:04:46 COVID-19 458511075 U07.1 [id number] Elvia Hernandez MD [facility] [address],[place] [address] 11/27/2021 11:27:38 11/27/2021 14:51:55 Routine care 696412028 Z34.[id number] [facility] [address],[place] [address] 11/30/2021 13:51:34 11/30/2021 14:32:28 Gestational diabetes mellitus class A1 36489141 O24.[id number] [facility] [address],[place] [address] 11/30/2021 14:29:50 11/30/2021 14:43:49 Gestational diabetes mellitus class A1 84492984 O24.410 Pt here for diet teaching. Went over ideal ranges for FBS and pp BS. Went over carb counting and carb ranges for each meal/snack . Gave ideas for foods to eat for meals/snac ks. Discussed drink options and to avoid soda and juice. Pt stopped checking BS 1-2 weeks ago. Told pt to start checking BS QID and adjusting diet to follow low carb diet to try to keep BS within normal range. Went over NST schedule with pt and importance of keeping these appts and checking BS for her and baby's health. Pts questions were answered and pt verbalized understand ing. jolynn RN [id number] Maranda Martínez [facility] [address],[place] [address] 12/07/2021 08:59:55 12/07/2021 10:16:27 Gestational diabetes mellitus class A1 16779746 O24.410 Pt here for diet teaching. Went over ideal ranges for FBS and pp BS. Went over carb counting and carb ranges for each meal/snack . Gave ideas for foods to eat for meals/snac ks. Discussed drink options and to avoid soda and juice. Pt stopped checking BS 1-2 weeks ago. Told pt to start checking BS QID and adjusting diet to follow low carb diet to try to keep BS within normal range. Went over NST schedule with pt and importance of keeping these appts and checking BS for her and baby's health. Pts questions were answered and pt verbalized understand ing. jolynn RN [id number] Suzi Lin [facility] [address],[place] [address] 12/07/2021 09:12:42 12/07/2021 10:17:35 Routine care 384935561 Z34.93 [id number] Shantelle Mcallisterer [facility] [address],[place] [address] 12/07/2021 09:13:11 12/07/2021 10:17:20 Gestational diabetes mellitus class A1 60167709 O24.410 [id number] Elvia Hernandez MD [facility] [address],[place] [address] 12/12/2021 10:11:50 12/14/2021 13:28:18 Gestational diabetes mellitus class A1 64898263 O24.410 [id number] [facility] [address],[place] [address] 12/14/2021 15:57:14 12/14/2021 16:42:27 Gestational diabetes mellitus class A1 43166998 O24.410 [id number] [facility] [address],[place] [address] 12/14/2021 15:58:33 12/14/2021 17:14:40 Gestational diabetes mellitus class A1 59695477 O24.410 Z3A.36 [id number] [facility] [address],[place] [address] 12/21/2021 11:28:28 12/21/2021 12:07:54 Gestational diabetes mellitus class A1 64082060 O24.410 Z3A.36 [id number] [facility] [address],[place] [address] 12/21/2021 11:29:29 12/21/2021 13:36:16 Gestational diabetes mellitus class A1 98188667 O24.410 Z3A.37 [id number] Suzi Lin CNM [facility] [address],[place] [address] 12/21/2021 11:30:02 12/21/2021 12:32:02 Routine care 434280575 Z34.93 [id number] [facility] [address],[place] [address] 12/28/2021 14:29:32 12/28/2021 15:59:34 Gestational diabetes mellitus class A1 09977128 O24.410 O99.891 U07.1 Z86.16 Z3A.38 [id number] [facility] [address],[place] [address] 12/28/2021 14:30:31 12/28/2021 15:32:34 Gestational diabetes mellitus class A1 67304100 O24.410 O99.891 U07.1 Z86.16 Z3A.38 [id number] [facility] [address],[place] [address] 12/28/2021 14:30:54 12/28/2021 16:20:53 Routine care 606053489 Z34.93 - induced hypertension 60788078 O13.9 [id number] [facility] [address],[place] [address] 01/04/2022 13:54:35 01/04/2022 14:29:49 Gestational diabetes mellitus class A1 94810810 O24.410 O99.891 U07.1 Z86.16 Z3A.38 [id number] [facility] [address] [place] [address] 01/04/2022 13:56:48 01/04/2022 15:01:46 Gestational diabetes mellitus class A1 59160658 O24.410 O99.891 U07.1 Z86.16 Z3A.39 [id number] [facility] [address] [place] [address] 01/04/2022 13:57:26 01/04/2022 15:30:56 Routine care 561808485 Z34.93 [id number] [facility] [address] [place] [address] 01/11/2022 15:21:05 01/11/2022 16:05:09 Laceration of vagina 075289186 S31.41XA Hypertensi on screening 865189162 Z13.6 [id number] Suzi ZazuetaKaren Magañae, [place] [address],[place] [address] 01/30/2022 16:37:54 01/31/2022 16:28:58 care 583000088 Z39.2 [id number] Viviana Murguia [place] [address],[place] [address] 06/21/2022 16:10:11 06/24/2022 16:00:59 Vaginitis 12332319 N76.0 Suspect yeast on examMedica tion sentContac t if persists Counseled on medication R/B's, Most common side effects, & use. All questions were answered to patient satisfacti on. Time spent in visit is a total of 15 mins with at least 50% of visit consisting of counseling and review of plan of care. [id number] Pennie Andrew [place] [address],[place] [address] 07/23/2022 11:17:29 07/23/2022 12:08:37 Urinary symptoms 104695900 R39.9 Vaginitis 27747626 N76.0 Suspect BV on examVagini tis panel sentUA WNL, cx sentSTI testing declinedVu lvar care guidelines discussedR x sent, R/B/A discussedI f symptoms continue past treatment, RTC and consider STI testing Time spent in visit is a total of 22 mins with at least 50% of visit consisting of counseling and review of plan of care. [id number] Viviana Murguia [facility] [address],[place] [address] 09/13/2022 16:42:23 09/13/2022 17:06:40 Vaginitis 43062134 N76.0 Today we discussed awaiting return of results b/c exam looked wnl today.Will reach out with resultsRec baking soda soaks/ice packs/OTC hydrocorti sone ointment for itch prn Time spent in visit is a total of 15 mins with at least 50% of visit consisting of counseling and review of plan of care. [id number] GENARO OMALLEY MD [facility] [address],[place] [address] 05/02/2023 15:45:27 05/02/2023 16:32:03 Bacterial vaginosis 649139988 N76.0 - BV/yeast sent Venereal d isease screening 819035827 Z11.3 - GC/CT/tric h sent- declined blood draw for HIV/hep/RP R Gynecologi c examination 78102078 Z01.419 Well woman care- Cervical cancer screening: Pap smear not indicated (next 04/2025)- Breast cancer screening: does not qualify- Colon cancer screening: does not qualify- STD testing: received as above- hereditary cancer screening: does not qualify for testing Health Concerns Section Related Observation LastModified by Organization Detai ls LastModified Time None Recorded Concern Status LastModified by Organization Details LastModified Time None Recorded Advance Directives Directive N: Payers Encounter Date Sequence Insurance Name Policy Number Policy Landeros Covered Member ID Landeros Member ID Guarantor Name 04/19/2022 1 [place] [id number] Miky Varela [id number] Carol Varela 04/19/2022 1 [facility] (MEDICAID HMO) [id number] Carol Kylahe [id number] Carol Kylahe 06/21/2022 1 [facility] (MEDICAID HMO) [id number] Carol Knoche [id number] Carol Evertoche 07/23/2022 1 [facility] (MEDICAID HMO) [id number] Carol Evertoche [id number] Carol Kylahe 09/13/2022 1 [facility] (MEDICAID HMO) [id number] Carol Evertoche [id number] Carol Evertoche 05/02/2023 1 [facility] (MEDICAID HMO) [id number] Carol Evertoche [id number] Carol Knoche Notes Date Note Type Note Provider Name and Address Organization Details Recorded Time 04/19/2022 text/html Annual GYNReport ed bypatient.Menstrual cycle:Normal menses Urinary symptoms:No hematuria; No incontinence Vulva:No genital lesion Vagina:Normal vaginal discharge Breast:No breast pain; No breast lump; No nipple discharge Current Contraception:Satisf ied with current contraception; slynd, some increased cramping since baby Sexual complaints:No sexual complaints; No pain during intercourse; Normal libido Menopausal Symptoms:No menopausal symptoms; Normal vaginal lubrication Psychological symptoms:No depression; No anxiety; No PMDD Preventive measures:Encourage self breast examination; Encourage regular exercise; Encourage no tobacco useNotes:doing well baby getting big, started cycle today Suzi Lin, GUSTAVO [address], [place], [address], [facility] 04/19/2022 15:25:44 06/21/2022 text/html Vaginal/Vulvar ProblemReported bypatient.Notes:Here today for possible vaginal yeast infection. Neg pain of abd/pelvis/flankNeg urinary sx'sNeg GI sx'sNeg N/V/F/C/D++ Vag d/c, neg odor, irritation, ++ itchingNeg new sexual partnersNeg changes in detergents/medicatio ns. Used a new soap which might have offset pH per pt. AURORA Stewart- [address], [place], [address], [facility] 06/24/2022 11:10:51 07/23/2022 text/html 21yo Presents fo r evaluation of vaginal odor and d/cSymptoms started about 1-2 months ago. Treated for yeast at [facility], this resolved the itchingSlight irritation with urinationSA with steady male partnerSlynd for BC. She is not breastfeedingLMP: 07/23/22Denies any pelvic pain, n/v/f, flank pains, or flu-like symptoms AURORA Ji [address], [place], [address], [facility] 07/23/2022 12:01:32 09/13/2022 text/html Vaginal/Vulvar ProblemReported bypatient.Notes:Here today for d/c with some itching.Recently took diflucan & flagyl for BV/yeast from a telehealth site.Started to feel better but now these sx's have returnedGetting ready to start cycle. Neg pain of abd/pelvis/flankNeg urinary sx'sNeg GI sx'sNeg N/V/F/C/DNeg Vag odorNeg new sexual partner Viviana Murguia, [facility]- [address], [place], [address], [facility] 09/13/2022 17:06:19 05/02/2023 text/html Presents today f or her annual well-woman exam. She reports concerns of vaginal infections today. No itching or burning, increased discharge. Has been treated 2x this year for BV, with recurrent symptoms. No scented soaps, douching, change in laundry detergent, etc. No clear triggers. She is sexually active and reports some positional dyspareunia that is mild. She is using condoms for contraception, and she states that she is satisfied with this method. She has not noticed any changes or masses in her breasts. LMP 05/01/23. Periods are regular and last 5-6 days. Flow is heavy and painful on 1st day, no intermenstrual spotting. GENARO OMALLEY MD [address], [place], [address], [facility] 05/02/2023 16:28:18 OBGyn Episode Ob Episode Information Episode Created Date Number of Fetuses Patient Bloodtype Patient rh Status Prepregnancy Weight lbs Domestic Partner Domestic Partner Phone Father Name Youth Court Judge Status 07/06/19 22 1 B Positive 118 CLOSED Fetus Data First Name Last Name Admitted to NICU Weight (g) Sex Living Outcome Pediatric Complications Fetus ID Race Codes Race Delivery Type Freddie 3685.43 5 M true Full Term shoulder dystocia, term mec, gastric aspirate 4 ccs [id number] Vaginal Delivery Problems Problem Notes HIV WNL/CBC WNL/ELEVATED 1HR Problem Name Start Date End Date Resolution Snomed Code Not e Impaired glucose tolerance in 680504461 Could n't keep 3hr GTT down. Checking BS QID and to review at 11/09 appt to see if she has GDM or not! COVID-19 09/28/2021 [id number] sx's 09/28 + 09/30 Baby ASA & serial growth u/s Gestational diabetes mellitus 24610331 Navi Calculation Initial Navi Date Initial Exam Date Initial Exam Provider Initial Ultrasound Date Last Menstrual Period Date Ultra Sound Weeks Gestation 01/11/2022 07/06/2021 06/15/2021 04/06/2021 9 Eighteen To Twenty Week Navi Update Ultra Sound Date Fundal Height At Umbil Quickening Date Ultra Sound Latest Weeks Gestation Final Navi Confirmed By Final Navi Confirmed Date Final Navi Date Ultra Sound Latest Days Gestation 0 [email or web address] 07/08/2021 01/12/20 0 Pre-gamaliel Flowsheet Flowsheet Date 07/06/2021 Ramos Score Blood Edema Fundus Height Fundus Units Glucose Ketones Leukocytes Nitrite Labor Signs Protein Cervic Dilation Cervic Effacement Cervic Station 13 Type Weight in lbs Pre/Post Dialysis Refused Weight 119.288198313761 BP Diastolic BP Location Tested BP Systolic BP Type 85 R arm 125 sitting Fetus Heart Rate Present A 155 Fetus Movement Comments this patient is a 20-year-ol d 1 at 13 weeks gestation presents for initial care. She is unremarkable medical, surgical, social history,. She is vaccinated and had a flu shot. She is given recommendations on Tdap. We discussed care in detail. She will begin routine care. Genetic testing is pending. Flowsheet Date 07/31/2021 Ramos Score Blood Edema Fundus Height Fundus Units Glucose Ketones Leukocytes Nitrite Labor Signs Protein Cervic Dilation Cervic Effacement Cervic Station neg none Type Weight in lbs Pre/Post Dialysis Refused Weight 121.358572179312 BP Diastolic BP Location Tested BP Systolic BP Type 79 117 Fetus Heart Rate Present A 145 Fetus Movement A No Comments Doing well. Tired, no other concerns. Repeat TSH today. Anatomy US next visit. Flowsheet Date 09/04/2021 Armos Score Blood Edema Fundus Height Fundus Units Glucose Ketones Leukocytes Nitrite Labor Signs Protein Cervic Dilation Cervic Effacement Cervic Station Type Weight in lbs Pre/Post Dialysis Refused BP Diastolic BP Location Tested BP Systolic BP Type Fetus Heart Rate Present Fetus Movement Comments Flowsheet Date 09/04/2021 Ramos Score Blood Edema Fundus Height Fundus Units Glucose Ketones Leukocytes Nitrite Labor Signs Protein Cervic Dilation Cervic Effacement Cervic Station 21 Type Weight in lbs Pre/Post Dialysis Refused Weight 130.159517936976 BP Diastolic BP Location Tested BP Systolic BP Type 84 R arm 125 sitting Fetus Heart Rate Present A 145 Fetus Movement A Yes Comments No complaints, normal anatom y scan, Flowsheet Date 10/09/2021 Ramos Score Blood Edema Fundus Height Fundus Units Glucose Ketones Leukocytes Nitrite Labor Signs Protein Cervic Dilation Cervic Effacement Cervic Station neg none 27 none trace Type Weight in lbs Pre/Post Dialysis Refused Weight 141.254998787535 BP Diastolic BP Location Tested BP Systolic BP Type 78 121 Fetus Heart Rate Present A 150 Fetus Movement A Yes Comments Doing well, no concerns. Dis cussed and encouraged Tdap. GCT next. Growth US next for h/o COVID in . Flowsheet Date 10/25/2021 Ramos Score Blood Edema Fundus Height Fundus Units Glucose Ketones Leukocytes Nitrite Labor Signs Protein Cervic Dilation Cervic Effacement Cervic Station Type Weight in lbs Pre/Post Dialysis Refused BP Diastolic BP Location Tested BP Systolic BP Type Fetus Heart Rate Present Fetus Movement Comments Flowsheet Date 10/25/2021 Ramos Score Blood Edema Fundus Height Fundus Units Glucose Ketones Leukocytes Nitrite Labor Signs Protein Cervic Dilation Cervic Effacement Cervic Station 29 Type Weight in lbs Pre/Post Dialysis Refused Weight 144.456666737577 BP Diastolic BP Location Tested BP Systolic BP Type 82 R arm 122 sitting Fetus Heart Rate Present A 145 Fetus Movement Comments no complaints, normal growth today on ultrasound, normal SULEMAN, diabetes testing today Flowsheet Date 11/13/2021 Ramos Score Blood Edema Fundus Height Fundus Units Glucose Ketones Leukocytes Nitrite Labor Signs Protein Cervic Dilation Cervic Effacement Cervic Station neg trace 31 none trace Type Weight in lbs Pre/Post Dialysis Refused Weight 147.014015345060 BP Diastolic BP Location Tested BP Systolic BP Type 82 124 Fetus Heart Rate Present A 143 Present Fetus Movement A Yes Comments patient is having some right side pain, discharge, swelling, and nausea. blood sugars mostly wnl, occ meal over 145. precautions reviewed, call for preadmit Flowsheet Date 11/27/2021 Ramos Score Blood Edema Fundus Height Fundus Units Glucose Ketones Leukocytes Nitrite Labor Signs Protein Cervic Dilation Cervic Effacement Cervic Station Type Weight in lbs Pre/Post Dialysis Refused BP Diastolic BP Location Tested BP Systolic BP Type Fetus Heart Rate Present Fetus Movement Comments Flowsheet Date 11/27/2021 Ramos Score Blood Edema Fundus Height Fundus Units Glucose Ketones Leukocytes Nitrite Labor Signs Protein Cervic Dilation Cervic Effacement Cervic Station neg none 34 none trace Type Weight in lbs Pre/Post Dialysis Refused Weight 151.238486652569 BP Diastolic BP Location Tested BP Systolic BP Type 83 120 Fetus Heart Rate Present A 160 Fetus Movement A Yes Comments Doing well. Tdap done. US to day 67%. Precautions given. Flowsheet Date 11/30/2021 Ramos Score Blood Edema Fundus Height Fundus Units Glucose Ketones Leukocytes Nitrite Labor Signs Protein Cervic Dilation Cervic Effacement Cervic Station Type Weight in lbs Pre/Post Dialysis Refused BP Diastolic BP Location Tested BP Systolic BP Type Fetus Heart Rate Present Fetus Movement Comments Flowsheet Date 11/30/2021 Ramos Score Blood Edema Fundus Height Fundus Units Glucose Ketones Leukocytes Nitrite Labor Signs Protein Cervic Dilation Cervic Effacement Cervic Station Type Weight in lbs Pre/Post Dialysis Refused BP Diastolic BP Location Tested BP Systolic BP Type Fetus Heart Rate Present Fetus Movement Comments Flowsheet Date 12/07/2021 Ramos Score Blood Edema Fundus Height Fundus Units Glucose Ketones Leukocytes Nitrite Labor Signs Protein Cervic Dilation Cervic Effacement Cervic Station Type Weight in lbs Pre/Post Dialysis Refused BP Diastolic BP Location Tested BP Systolic BP Type Fetus Heart Rate Present Fetus Movement Comments Flowsheet Date 12/07/2021 Ramos Score Blood Edema Fundus Height Fundus Units Glucose Ketones Leukocytes Nitrite Labor Signs Protein Cervic Dilation Cervic Effacement Cervic Station Type Weight in lbs Pre/Post Dialysis Refused BP Diastolic BP Location Tested BP Systolic BP Type Fetus Heart Rate Present Fetus Movement Comments Flowsheet Date 12/07/2021 Ramos Score Blood Edema Fundus Height Fundus Units Glucose Ketones Leukocytes Nitrite Labor Signs Protein Cervic Dilation Cervic Effacement Cervic Station neg none none trace Type Weight in lbs Pre/Post Dialysis Refused Weight 155.64343445582 BP Diastolic BP Location Tested BP Systolic BP Type 96 141 78 138 Fetus Heart Rate Present Fetus Movement A Yes Comments patient is having some nause a. precautions reviewed pih sxs reviewed rpt wnl, preadmission scheduled gbs next visit, 2 elevated fastings the rest wnl Flowsheet Date 12/12/2021 Ramos Score Blood Edema Fundus Height Fundus Units Glucose Ketones Leukocytes Nitrite Labor Signs Protein Cervic Dilation Cervic Effacement Cervic Station neg none 36 none trace Type Weight in lbs Pre/Post Dialysis Refused Weight 156.643446542260 BP Diastolic BP Location Tested BP Systolic BP Type 86 123 Fetus Heart Rate Present A 140 Fetus Movement A Yes Comments Doing well. US later this we ek. GDM well controlled- only one fasting elevated. GBS done and discussed. Flowsheet Date 12/14/2021 Ramos Score Blood Edema Fundus Height Fundus Units Glucose Ketones Leukocytes Nitrite Labor Signs Protein Cervic Dilation Cervic Effacement Cervic Station Type Weight in lbs Pre/Post Dialysis Refused BP Diastolic BP Location Tested BP Systolic BP Type Fetus Heart Rate Present Fetus Movement Comments Flowsheet Date 12/14/2021 Ramos Score Blood Edema Fundus Height Fundus Units Glucose Ketones Leukocytes Nitrite Labor Signs Protein Cervic Dilation Cervic Effacement Cervic Station Type Weight in lbs Pre/Post Dialysis Refused BP Diastolic BP Location Tested BP Systolic BP Type Fetus Heart Rate Present Fetus Movement Comments Flowsheet Date 12/21/2021 Ramos Score Blood Edema Fundus Height Fundus Units Glucose Ketones Leukocytes Nitrite Labor Signs Protein Cervic Dilation Cervic Effacement Cervic Station Type Weight in lbs Pre/Post Dialysis Refused BP Diastolic BP Location Tested BP Systolic BP Type Fetus Heart Rate Present Fetus Movement Comments Flowsheet Date 12/21/2021 Ramos Score Blood Edema Fundus Height Fundus Units Glucose Ketones Leukocytes Nitrite Labor Signs Protein Cervic Dilation Cervic Effacement Cervic Station Type Weight in lbs Pre/Post Dialysis Refused BP Diastolic BP Location Tested BP Systolic BP Type Fetus Heart Rate Present Fetus Movement Comments Flowsheet Date 12/21/2021 Ramos Score Blood Edema Fundus Height Fundus Units Glucose Ketones Leukocytes Nitrite Labor Signs Protein Cervic Dilation Cervic Effacement Cervic Station neg trace none trace 0cm 10% -3 Type Weight in lbs Pre/Post Dialysis Refused Weight 160.068254618464 BP Diastolic BP Location Tested BP Systolic BP Type 88 141 78 126 Fetus Heart Rate Present Fetus Movement A Yes Comments patient is having some BH co ntractions, back / side pain, discharge and swelling. reviewed precautions, reviewed labor, NST R, reviewed sugars f/u one week Flowsheet Date 12/28/2021 Ramos Score Blood Edema Fundus Height Fundus Units Glucose Ketones Leukocytes Nitrite Labor Signs Protein Cervic Dilation Cervic Effacement Cervic Station Type Weight in lbs Pre/Post Dialysis Refused BP Diastolic BP Location Tested BP Systolic BP Type Fetus Heart Rate Present Fetus Movement Comments Flowsheet Date 12/28/2021 Ramos Score Blood Edema Fundus Height Fundus Units Glucose Ketones Leukocytes Nitrite Labor Signs Protein Cervic Dilation Cervic Effacement Cervic Station Type Weight in lbs Pre/Post Dialysis Refused BP Diastolic BP Location Tested BP Systolic BP Type Fetus Heart Rate Present Fetus Movement Comments Flowsheet Date 12/28/2021 Ramos Score Blood Edema Fundus Height Fundus Units Glucose Ketones Leukocytes Nitrite Labor Signs Protein Cervic Dilation Cervic Effacement Cervic Station neg trace none trace Type Weight in lbs Pre/Post Dialysis Refused Weight 160.515429027931 BP Diastolic BP Location Tested BP Systolic BP Type 93 142 82 128 Fetus Heart Rate Present Fetus Movement A Yes Comments patient has had headache, vi rut changes, BH contractions and swelling. coronado resolves, will check labs and precautions reviewed plan MIL GDM, did not bring log today will schedule iol next week for 01/07 EFW 59% bpp 12/17 Flowsheet Date 01/04/2022 Ramos Score Blood Edema Fundus Height Fundus Units Glucose Ketones Leukocytes Nitrite Labor Signs Protein Cervic Dilation Cervic Effacement Cervic Station Type Weight in lbs Pre/Post Dialysis Refused BP Diastolic BP Location Tested BP Systolic BP Type Fetus Heart Rate Present Fetus Movement Comments Flowsheet Date 01/04/2022 Ramos Score Blood Edema Fundus Height Fundus Units Glucose Ketones Leukocytes Nitrite Labor Signs Protein Cervic Dilation Cervic Effacement Cervic Station Type Weight in lbs Pre/Post Dialysis Refused BP Diastolic BP Location Tested BP Systolic BP Type Fetus Heart Rate Present Fetus Movement Comments Flowsheet Date 01/04/2022 Ramos Score Blood Edema Fundus Height Fundus Units Glucose Ketones Leukocytes Nitrite Labor Signs Protein Cervic Dilation Cervic Effacement Cervic Station neg trace none trace Type Weight in lbs Pre/Post Dialysis Refused Weight 165.298745474352 BP Diastolic BP Location Tested BP Systolic BP Type 98 143 Fetus Heart Rate Present Fetus Movement A Yes Comments patient is having some contr actions, left leg pain and swelling. Precautions reviewed scheduled IOL on friday for GDM, did not bring blood sugar log today, says that most fastings under 98, bp precautions to ld for labs Flowsheet Date 01/11/2022 Ramos Score Blood Edema Fundus Height Fundus Units Glucose Ketones Leukocytes Nitrite Labor Signs Protein Cervic Dilation Cervic Effacement Cervic Station Type Weight in lbs Pre/Post Dialysis Refused Weight 144.005720211717 BP Diastolic BP Location Tested BP Systolic BP Type 95 146 Fetus Heart Rate Present Fetus Movement Comments Flowsheet Date 01/30/2022 Ramos Score Blood Edema Fundus Height Fundus Units Glucose Ketones Leukocytes Nitrite Labor Signs Protein Cervic Dilation Cervic Effacement Cervic Station Type Weight in lbs Pre/Post Dialysis Refused Weight 136.796125638068 BP Diastolic BP Location Tested BP Systolic BP Type 76 107 Fetus Heart Rate Present Fetus Movement Comments Menstrual History Last Menstrual Date Menses Monthly On Bcp Conception Prior Menses Frequency Hcg Plus Date Menarche Onset Age 1104/06/2021 Genetic Screening And Infection History Question Response Note Mental Retardation/Autism false Patient's Age Will Be 35 Years Or Older At Estim ated Date of Delivery false Thalassemia (Tuvaluan, Andorran, Mediterranean, Or Background): MCV < 80 false Neural Tube Defect (Meningomyelocele, Spina Bifi da, Or Anencephaly) false Congenital Heart Defect false Down Syndrome false Josemanuel-Sachs (eg, Rastafari, Cajun, Macedonian-Maldivian) f alse Logan Disease false Sickle Cell Disease Or Trait () false Hemophilia Or Other Blood Disorders false Muscular Dystrophy false Cystic Fibrosis false [place]'s Chorea false Intellectual Disability/Autism false If Yes, Was Person Tested For Fragile X? false Other Inherited Genetic Or Chromosomal Disorder false Maternal Metabolic Disorder (eg, Type 1 Diabetes , PKU) false Patient Or Baby's Father Had A Child With Defects Not Listed Above false Recurrent Loss, Or A Stillbirth false Medications (including Suppl ements, Vitamins, Herbs, OTC Drugs), Illicit/Recreational Drugs, Alcohol false If Yes, Agent(s) And Strength/Dosage false Any Other Genetic History false Live With Someone With TB Or Exposed To TB false Patient Or Partner Has History Of Genital Herpes false Rash Or Viral Illness Since Last Menstrual Perio d false History Of STD, Gonorrhea, Chlamydia, HPV, Syphi lis false Other Infection History false History of HIV false History of Hepatitis false Prior GBS-infected child false Hemoglobinopathy Or Carrier false Other Structural Defect false Recent Travel History Outside of Country false Delivery Information Delivery Date Delivery Type Labor Anesthesia Weeks Gestation Incision Type Labor Labor Length Hrs Delivered By Post Complications Tubal Sterilization Discharge Date Comments 2 Induce d Local 39.1 false Suzi Lin CNM GDM, GHTN pre eclampsia w/o sever features, third degree laceratio n Discharge Information Feeding Method Contraceptive Method Maternal HG B and HCT Levels Bottle
--- OUTSIDE RECORDS SUMMARY | 2024-08-09 12:45 | XMS_ITS | Clinical Summary ---
Author Organization [facility] [employer] Address [address] [place] [address] Care Team Providers Care Aircraft Seat Upholsterer Name Role Phone Unavailable Primary Care Provider Unavailabl e Source Comments [facility],non-owned Affiliates and Associated Physician Practices is amultiple site organization consisting of ambulatory clinics and hospital sitesin [place], [place], [place] and [place]. This disclosure is being madepursuant to the Care Everywhere program and may not contain all information available regarding this patient. Last updated 18.[facility] Allergies No known active allergies Medications * Be aware that medications may not be up to date on this document. Alwaysverify current medications with the patient. Medication Sig Dispensed Refills Start Date End Date Status etonogestrel (NEXPLANON) 68 MG implant 68 mg by Subdermal route as directed Active etonogestrel-ethinyl estradiol (NUVARING) 0.12-0.015 MG/24HR vaginal ring Insert 1 device into the vagina as directed Remove ring after 3 weeks, followed by 1 week-rest, then insert new ring Active fluconazole (DIFLUCAN) 150 MG tablet Take 1 tablet by mouth every 7 days 3 tablet 01/24/2019 Active Social History Tobacco Use Types Packs/Day Years Used Date Smoking Tobacco: Never Smokeless Tobacco: Never Sex and Gender Information Value Date Recorded Sex Assigned at Female 01/19/2022 7:22 PM CDT Gender Identity Female 01/19/2022 7:22 PM CDT Sexual Orientation Not on file Last Filed Vital Signs Vital Sign Reading Time Taken Comments Blood Pressure 120/70 01/24/2019 10:37 AM CDT Pulse 87 01/24/2019 10:37 AM CDT Temperature 36.8 C (98.2 F) 01/24/2019 10:37 AM CDT Respiratory Rate - - Oxygen Saturation - - Inhaled Oxygen Concentration - - Weight 54 kg (119 lb) 01/24/2019 10:37 AM CDT Height 160 cm (5' 3 ) 01/24/2019 10:37 AM CDT Body Mass Index 21.08 01/24/2019 10:37 AM CDT Plan of Treatment Health Maintenance Due Date Last Done Comments HIV SCREENING 2013 HPV VACCINE (1 - 3-dose series) 2013 CHLAMYDIA/GONORRHEA SCREENING 2014 HEPATITIS C SCREENING 12/21/2016 DTAP/TDAP/TD VACCINES (1 - Tdap) 2017 HEPATITIS B VACCINE (1 of 3 - 19+ 3-dose series) 2017 COVID-19 VACCINE (1 - 2023-2 5 season) 2024 INFLUENZA VACCINE (#1) 2024 DEPRESSION SCREENING 05/12/2024 ZOSTER VACCINE (1 of 2) 2048 HIB VACCINE Aged Out No longer eligi ble based on patient's age to complete this topic MENINGOCOCCAL (Group B) VACC INE SHARED DECISION-MAKING Aged Out No longer eligibl e based on patient's age to complete this topic MENINGOCOCCAL GROUPS A/C/Y/W VACCINE Aged Out No longer eligible b ased on patient's age to complete this topic PNEUMOCOCCAL VACCINE Aged Out No long er eligible based on patient's age to complete this topic Advance Directives Documents on File Type Date 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
--- OUTSIDE RECORDS SUMMARY | 2024-08-09 12:45 | XMS_ITS | Clinical Summary ---
Author Organization [facility] Address [address] [place] [address] Phone Care Team Providers Care Core Shaper Top Name Role Phone Provider, None Primary Care Provider Unavailabl e Allergies No known active allergies Medications ondansetron (Zofran ODT) 4 MG TABLET DISPERSIBLE Take 1 Tablet by mouth every 8 hours as needed for Nausea - 1st line. 10 Tablet 05/12/2021 Active Social History Tobacco Use Types Packs/Day Years Used Date Smoking Tobacco: Never Smokeless Tobacco: Never Alcohol Use Standard Drinks/Week Comments Not Currently 0 (1 standard drink = 0.6 oz pur e alcohol) Comments No Sex and Gender Information Value Date Recorded Sex Assigned at Not on file Legal Sex Female 10:12 PM CDT Gender Identity Not on file Sexual Orientation Not on file Last Filed Vital Signs Vital Sign Reading Time Taken Comments Blood Pressure 122/74 05/12/2021 8:02 PM CAN LABELER Pulse 97 05/12/2021 8:02 PM CAN LABELER Temperature 36.9 C (98.5 F) 05/12/2021 6:01 PM CAN LABELER Respiratory Rate 20 05/12/2021 8:02 PM CAN LABELER Oxygen Saturation 99% 05/12/2021 8:02 PM CAN LABELER Inhaled Oxygen Concentration - - Weight 51.7 kg (114 lb) 05/12/2021 6:01 PM CAN LABELER Height 160 cm (5' 3 ) 05/12/2021 6:01 PM CAN LABELER Body Mass Index 20.19 05/12/2021 6:01 PM CAN LABELER Plan of Treatment Health Maintenance Due Date Last Done Comments Hepatitis C Virus (HCV) Screening 1998 TdaP Immunization 1998 Human Papillomavirus (HPV) Immunization (1 - 3-dose series) 2013 Hepatitis B Immunization (1 of 3 - 19+ 3-dose series) 2017 Influenza Immunization (#1) 2024 SARS-COV-2 Immunization (1 - 2023-25 season) 2024 Respiratory Syncytial Virus (RSV) Immunization (Adult) (1 - 1-dose 75+ series) 2073 Meningococcal Immunization (ACWY) Aged Out No longer eligible based on patient's age to complete this topic Pneumococcal Immunization Combined Aged Out No longer eligible based on patient's age to complete this topic Rotavirus Immunization Aged Out No lo nger eligible based on patient's age to complete this topic Care Teams Core Shaper Top Relationship Specialty Start Date End Date Provider, None [place] PCP - General 05/12/21
== END 2024-08-09 11:15 | disposition home or self-care (01) ==
PROVIDERS: Visit Provider Obstetrics & Gynecology
DX: O20.0 Threatened abortion (principal); Z3A.00 Weeks of gestation of pregnancy not specified
CPT/HCPCS: 36415; 84702

== ENCOUNTER 2024-08-11 08:42 | Outpatient (CLI) | payer BC, SELFPAY ==
--- OUTSIDE RECORDS SUMMARY | 2024-08-11 09:01 | XMS_ITS | Clinical Summary ---
Author Organization [facility] [employer] Address [address] [place] [address] Care Team Providers Care Photofinishing Laboratory Worker Name Role Phone Unavailable Primary Care Provider Unavailabl e Source Comments [facility] [employer],non-owned Affiliates and Associated Physician Practices is amultiple site organization consisting of ambulatory clinics and hospital sitesin [place], [place], [place] and [place]. This disclosure is being madepursuant to the Care Everywhere program and may not contain all information available regarding this patient. Last updated 18.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
--- OUTSIDE RECORDS SUMMARY | 2024-08-11 09:01 | XMS_ITS | Clinical Summary ---
Author Organization [facility] Address [address] [place] [address] Phone Care Team Providers Care Broker Name Role Phone Provider, None Primary Care [...] Comments Blood Pressure 122/74 05/12/2021 8:02 PM QUARTER TRIMMER Pulse 97 05/12/2021 8:02 PM QUARTER TRIMMER Temperature 36.9 C (98.5 F) 05/12/2021 6:01 PM QUARTER TRIMMER Respiratory Rate 20 05/12/2021 8:02 PM QUARTER TRIMMER Oxygen Saturation 99% 05/12/2021 8:02 PM QUARTER TRIMMER Inhaled Oxygen Concentration - - Weight 51.7 kg (114 lb) 05/12/2021 6:01 PM QUARTER TRIMMER Height 160 cm (5' 3 ) 05/12/2021 6:01 PM QUARTER TRIMMER Body Mass Index 20.19 05/12/2021 6:01 PM QUARTER TRIMMER Plan of Treatment Health Maintenance Due Date [...] age to complete this topic Care Teams Broker Relationship Specialty Start Date End Date Provider, None [place] PCP - General 05/12/21
[2024-08-11 09:50] LABS: Beta HCG Quantitative 7.72 mIU/ML
== END 2024-08-11 08:43 | disposition home or self-care (01) ==
PROVIDERS: PCP Nurse Practitioner Family; Visit Provider Obstetrics & Gynecology
DX: O20.0 Threatened abortion (principal); Z3A.00 Weeks of gestation of pregnancy not specified
CPT/HCPCS: 36415; 84702

== ENCOUNTER 2024-08-13 11:43 | Outpatient (CLI) | payer BC, SELFPAY ==
--- OUTSIDE RECORDS SUMMARY | 2024-08-13 12:01 | XMS_ITS | Clinical Summary ---
Author Organization [facility] [employer] Address [address] [place] [address] Care Team Providers Care Facility Planner Name Role Phone Unavailable Primary Care Provider Unavailabl e Source Comments [facility] [employer],non-owned Affiliates and Associated Physician Practices is amultiple site organization consisting of ambulatory clinics and hospital sitesin [place], [place], [place] and [place]. This disclosure is being madepursuant to the Care Everywhere program and may not contain all information available regarding this patient. 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
--- OUTSIDE RECORDS SUMMARY | 2024-08-13 12:01 | XMS_ITS | Clinical Summary ---
Author Organization [facility] Address [address] [place] [place] [address] Phone Care Team Providers Care Curtain Cutter Name Role Phone Provider, None Primary Care [...] Comments Blood Pressure 122/74 05/12/2021 8:02 PM STATION BAGGAGE AGENT Pulse 97 05/12/2021 8:02 PM STATION BAGGAGE AGENT Temperature 36.9 C (98.5 F) 05/12/2021 6:01 PM STATION BAGGAGE AGENT Respiratory Rate 20 05/12/2021 8:02 PM STATION BAGGAGE AGENT Oxygen Saturation 99% 05/12/2021 8:02 PM STATION BAGGAGE AGENT Inhaled Oxygen Concentration - - Weight 51.7 kg (114 lb) 05/12/2021 6:01 PM STATION BAGGAGE AGENT Height 160 cm (5' 3 ) 05/12/2021 6:01 PM STATION BAGGAGE AGENT Body Mass Index 20.19 05/12/2021 6:01 PM STATION BAGGAGE AGENT Plan of Treatment Health Maintenance Due Date [...] age to complete this topic Care Teams Curtain Cutter Relationship Specialty Start Date End Date Provider, None [place] PCP - General 05/12/21
[2024-08-13 14:02] LABS: Basophils Percent Auto 0.4 % (0.2-1.2); Eosinophils Percent Auto 0.7 % (0-4.4); Immature Granulocyte Absolute 0.01 K/mm3 (0.00-0.031); Immature Granulocyte Percent A 0.2 % (0-0.5); Lymphocytes Absolute Auto 1.74 K/mm3 (0.9-3.2); Mean Corpuscular HGB Conc 32.5 g/dl (32-36); Mean Corpuscular Hemoglobin 29.3 pg (26-34); Mean Corpuscular Volume 90.1 fl (80-100); Mean Platelet Volume 10.3 fl (7.4-10.4); Monocytes Absolute Auto 0.6 K/mm3 (0.1-0.6); Monocytes Percent Auto 10.9 % (2.6-8.5); Neutrophils Absolute Auto 3.2 K/mm3 (1.3-6.7); Neutrophils Percent Auto 56.8 % (45.5-73.1); Platelet Count Result 279 k/mm3 (150-375); Red Blood Count 4.44 M/mm3 (4.2-5.4); White Blood Count 5.6 K/mm3 (4.5-10.0)
[2024-08-13 14:31] LABS: Hemoglobin A1C 5.2 % (<5.7)
[2024-08-13 14:43] LABS: Alanine Aminotransferase 56 U/L (6-35); Albumin Level 4.5 g/dL (3.5-5.1); Alkaline Phosphatase 75 U/L (38-126); Anion Gap 10 mmol/L (4-12); Aspartate Amino Transferase 51 U/L (14-36); Bilirubin,Total 0.2 mg/dL (0.2-1.3); Blood Urea Nitrogen 11 mg/dL (7-17); Calcium 8.9 mg/dL (8.4-10.2); Carbon Dioxide 27 mmol/L (22-30); Chloride 102 mmol/L (98-107); Estimated Glomerular Filt Rate > 60; Glucose 86 mg/dL (65-110); Potassium 4.1 mmol/L (3.4-5.0); Sodium 139 mmol/L (137-145)
[2024-08-13 15:28] LABS: Thyroid Stimulating Hormone 0.717 uIU/mL (0.465-4.680)
== END 2024-08-13 11:44 | disposition home or self-care (01) ==
LOC: ANHGOSHLAB 11:44
PROVIDERS: PCP Nurse Practitioner Family; Visit Provider Nurse Practitioner Family
DX: I10 Essential (primary) hypertension (principal); R73.01 Impaired fasting glucose
CPT/HCPCS: 36415; 80053; 83036; 84443; 85025